=== PATIENT | female | born 1950 | race African-American/Black ===

== ENCOUNTER 2021-02-17 14:01 | Inpatient (IN) | payer OTHER, MEDICARE ==
[~2021-02-17] VITALS: Ht 172.7 cm; Wt 62.1 kg
--- NOTE | 2021-02-17 14:20 | NUR ---
OSWALDO FROM [facility] C/O INCREASED CONFUSION AND POOR ORAL INTAKE. PATIENT A/OX4, BREATHING EVEN AND UNLABORED, NO SOB NOTED. AMBULATORY WITHS TEADY GAIT.
[2021-02-17 14:46] LABS: BILIRUBIN,URINE Negative (NEGATIVE); COLOR,URINE YELLOW (YELLOW); LEUKOCYTE ESTERASE ,URINE Negative (NEGATIVE); NITRITE, URINE Negative (NEGATIVE); PH,URINE 6.5 (5.0-8.0); PROTEIN,URINE Negative (NEGATIVE); UGLUCOSE Negative (NEGATIVE); UROBILINOGEN,URINE 0.2 EU/dL (0.2)
--- NOTE | 2021-02-17 14:51 | NUR ---
COVID SWAB SENT. PATIENT IS REQUESTING FOR FOOD.
--- NOTE | 2021-02-17 14:51 | NUR ---
IV LINE ESTABLISHED, BLOOD DRAWN AND SENT TO LAB.
[2021-02-17 14:53] LABS: BASOPHILS # (AUTO) 0.1 /CMM (0.0-0.2); BASOPHILS % (AUTO) 0.8 % (0.0-2.0); EOSINOPHILS % (AUTO) 2.4 % (0.0-6.0); HEMATOCRIT 38 % (33-45); HEMOGLOBIN 12.5 g/dL (11.5-14.8); LYMPHOCYTES # (AUTO) 3.5 /CMM (0.8-4.8); LYMPHOCYTES % (AUTO) 55.8 % (20.0-44.0); MEAN CORPUSCULAR HGB CONC 33 g/dl (31.0-36.0); MEAN CORPUSCULAR VOLUME 96 fL (82-100); MONOCYTES # (AUTO) 0.4 /CMM (0.1-1.30); NEUTROPHILS # (AUTO) 2.1 /CMM (1.8-8.9); PLATELET COUNT (AUTO) 323 /CMM (150-450); RED BLOOD CELL COUNT(AUTO) 3.93 MIL/uL (4.0-5.2); WHITE BLOOD COUNT (AUTO) 6.2 K/uL (4.3-11.0)
[2021-02-17 15:01] LABS: CALCIUM, SERUM 9.7 mg/dL (8.5-10.1); CARBON DIOXIDE 30 mmol/L (21-32); CHLORIDE 103 mmol/L (98-107); CREATININE 0.7 mg/dL (0.6-1.3); GLUCOSE 104 mg/dL (74-106); POTASSIUM 4.3 mmol/L (3.5-5.1); SODIUM SERUM 139 mmol/L (136-145); UREA NITROGEN, BLOOD 12 mg/dL (7-18)
[2021-02-17 15:06] LABS: ALANINE AMINOTRANSFERASE 13 U/L (12-78); ALBUMIN 3.3 g/dL (3.4-5.0); ALKALINE PHOSPHATASE 69 U/L (46-116); ASPARTATE AMINOTRANSFERASE 14 U/L (15-37); BILIRUBIN,DIRECT 0.1 mg/dL (0.0-0.2); BILIRUBIN,TOTAL 0.5 mg/dL (0.2-1.0); TOTAL PROTEIN, SERUM 7.2 g/dL (6.4-8.2)
[2021-02-17] MEDS ORDERED: LEVO25TA7 PO (15:33)
[2021-02-17] MEDS ORDERED: QUET100T PO (15:33)
[2021-02-17] MEDS ORDERED: DOCU-141 PO (15:33)
[2021-02-17] MEDS ORDERED: IBUP-1953 PO (15:33)
[2021-02-17] MEDS ORDERED: NA P133E RC (15:33)
[2021-02-17] MEDS ORDERED: LEVE500T9 PO (15:33)
[2021-02-17] MEDS ORDERED: BISA10SU11 RC (15:33)
[2021-02-17] MEDS ORDERED: INSU100V3 IJ (15:33)
[2021-02-17] MEDS ORDERED: ACET325T53 PO (15:33)
[2021-02-17] MEDS ORDERED: RISP2TAB5 PO (15:33)
[2021-02-17] MEDS ORDERED: ASCO500C17 PO (15:33)
[2021-02-17] MEDS ORDERED: MULT-447 PO (15:33)
[2021-02-17] MEDS ORDERED: MAGN400O6 PO (15:33)
[2021-02-17] MEDS ORDERED: METF500T PO (15:33)
[2021-02-17] MEDS ORDERED: LITH150C PO (15:33)
[2021-02-17] MEDS ORDERED: IV NS 0.9% 1,000 ML BAG IV ONE (16:00)
[2021-02-17] MEDS ORDERED: Z GUARD REMEDY 2 OZ OINT TP PRN (17:00)
[2021-02-17] MEDS ORDERED: DEXTROSE 50%-WATER 50 ML DISP.SYRIN IV PRN (17:00)
[2021-02-17] MEDS ORDERED: ONDANSETRON HCL/PF 4 MG/2 ML VIAL IVP PRN (17:00)
[2021-02-17] MEDS ORDERED: MAG HYDROX/AL HYDROX/SIMETH 30 ML UDC PO PRN (17:00)
[2021-02-17] MEDS ORDERED: ACETAMINOPHEN 325 MG TABLET PO PRN (17:00)
[2021-02-17] MEDS ORDERED: MAGNESIUM HYDROXIDE 30 ML UDC PO PRN ×2 (17:00)
[2021-02-17] MEDS ORDERED: IBUPROFEN 400 MG TABLET PO PRN (17:00)
[2021-02-17] MEDS ORDERED: HYDROCODONE/APAP 5/325MG TABLET PO PRN (17:00)
[2021-02-17] MEDS ORDERED: NA PHOS,M-B/NA PHOS,DI-BA 1 EA ENEMA RC PRN (17:00)
[2021-02-17] MEDS ORDERED: BISACODYL SUPP (10 MG) 10 MG/SUPP.RECT SUPP.RECT RC PRN (17:00)
--- NOTE | 2021-02-17 17:16 | NUR ---
COVID SWAB SENT
--- NOTE | 2021-02-17 18:23 | NUR ---
PROVIDED DINNER TRAY.
--- NOTE | 2021-02-17 18:50 | NUR ---
room 105, give report after shift per house sup
--- NOTE | 2021-02-17 20:06 | NUR ---
REPORT GIVEN GEOVANY MATOS FOR REY.
--- NOTE | 2021-02-17 20:15 | NUR ---
RN NOTE PT ARRIVED TO THE UNIT VIA GURNEY , PT IS CONFUSED, ON RA SATING 98%, NO S/S F DISTRESS.SAFETY MEASURES IN PLACE.
[2021-02-17 20:30] VITALS: BP 112/68
[2021-02-17] MEDS ORDERED: LEVETIRACETAM (250 MG) 250 MG TABLET PO SCH (21:00)
[2021-02-17] MEDS: LITHIUM CARBONATE 150 MG CAPSULE PO SCH (22:25)
[2021-02-17] MEDS: QUETIAPINE FUMARATE 100 MG TABLET PO SCH (22:25)
[2021-02-17] MEDS: BLOOD SUGAR DIAGNOSTIC 1 EACH STRIP VI SCH ×2 (22:28→22:33)
[2021-02-17] MEDS: METFORMIN 500 MG TABLET PO SCH (22:28)
[2021-02-17] MEDS: *INSULIN REGULAR(HUMULIN R)HUM 100 UNIT/ML VIAL SQ PRN (22:31)
[2021-02-17] MEDS: IV NS 0.9% 1,000 ML IV PRN (22:34)
[2021-02-18 04:00] VITALS: BP 110/62
[2021-02-18] MEDS: INSULIN REGULAR, HUMAN 100 UNIT/ML 3 ML VIAL SQ PRN ×2 (07:57→17:44)
[2021-02-18] MEDS: BLOOD SUGAR DIAGNOSTIC 1 EACH STRIP VI SCH ×4 (07:58→22:00)
[2021-02-18 08:00] VITALS: BP 106/74
[2021-02-18] MEDS: DOCUSATE SODIUM 100 MG CAPSULE PO SCH (09:50)
[2021-02-18] MEDS: LEVETIRACETAM (250 MG) 250 MG TABLET PO SCH ×3 (09:51→21:13)
[2021-02-18] MEDS: LITHIUM CARBONATE 150 MG CAPSULE PO SCH ×3 (09:51→21:13)
[2021-02-18] MEDS: MULTIVIT W/MINERALS 1 TAB TABLET PO SCH (09:51)
[2021-02-18] MEDS: QUETIAPINE FUMARATE 100 MG TABLET PO SCH ×2 (09:51→17:31)
[2021-02-18] MEDS: LEVOTHYROXINE SODIUM 25 MCG TABLET PO SCH (09:52)
[2021-02-18] MEDS: METFORMIN 500 MG TABLET PO SCH ×2 (12:34→17:31)
[2021-02-18] MEDS: IV NS 0.9% 1,000 ML IV PRN (13:05)
[2021-02-18 16:00] VITALS: BP_SYST 102; BP_SYST 108; BP_DIAS 65; BP_DIAS 68
[2021-02-18] MEDS: GLUCERNA SHAKE 237 ML CAN PO SCH (17:32)
--- NOTE | 2021-02-18 18:55 | NUR ---
RN NOTE REPORT GIVEN TO ONCOMING SHIFT FOR REY.
--- NOTE | 2021-02-18 19:10 | NUR ---
RN OPENING NOTE RECEIVED PATIENT IN BED RESTING ALERT CONFUSED VERBALLY RESPONSIVE ON ROOM AIR NO SOB NOT ACUTE DISTRESS NOTED,IV SITE IS ON RIGHT AC INTACT PATENT,ON IV HYDRATION BUT PATIENT REFUSES TO HAVE IV HYDRATION AMBULATORY WITH ASSIST CONTINENT TO BOWEL/BLADDER,BED IN LOW POSITON AND LOCKED,BED ALARM IS ON CONTINUE TO MONITOR.
[2021-02-18] MEDS: risperiDONE 1 MG TABLET PO SCH ×2 (21:15→21:21)
--- NOTE | 2021-02-18 21:39 | NUR ---
RN NOTE PATIENT REFUSED MEDICATION AND IV HYDRATION AFTER EXPLAINED 3 TIMES RISKS AND BENEFITS STILL REFUSED CANT RETURN MEDS BECAUSE ALREADY OPEN TO USE. NOTIFIED TRIMMING ASSEMBLER JAROD MCCONNELL CONTINUE TO MONITOR.
[2021-02-19 04:00] VITALS: BP 102/68
--- NOTE | 2021-02-19 06:35 | NUR ---
RN CLOSING NOTE PATIENT REMAINS ON ALERT CONFUSED ON ROOM AIR NO SOB NOT ACUTE DISTRESS NOTED PATIENT REFUSED TO BE CHANGED AND REFUSED MEDS AND REFUSED TO TAKE VITAL SIGNS NOTIFIED JAROD MCCONNELL ENDORSE NEXT COMING SHIFT FOR CONTINUATION OF CARE.
[2021-02-19] MEDS: BLOOD SUGAR DIAGNOSTIC 1 EACH STRIP VI SCH ×4 (07:30→22:00)
--- NOTE | 2021-02-19 07:45 | NUR ---
RN OPENING NOTE PATIENT IS CURRENTLY IN BED WITH HOB AT SEMI FOWLERS POSITION. PATIENT IS ON ROOM AIR WITH NO SIGNS OF LABORED BREATHING. PATIENT IS CONFUSED. RAC #18 IS PATENT AND INTACT. BED IS LOCKED IN THE LOWEST POSITION, 3 GUARD RAILS RAISED, CALL HERNANDEZ WITHIN REACH, AND ALL HOSPITAL SAFETY PRECAUTIONS ARE IN PLACE. WILL CONTINUE TO MONITOR THROUGHOUT SHIFT.
[2021-02-19] MEDS: GLUCERNA SHAKE 237 ML CAN PO SCH ×3 (08:00→17:26)
[2021-02-19] MEDS: LEVETIRACETAM (250 MG) 250 MG TABLET PO SCH ×3 (08:13→20:21)
[2021-02-19] MEDS: LITHIUM CARBONATE 150 MG CAPSULE PO SCH ×3 (08:13→20:21)
[2021-02-19] MEDS: risperiDONE 1 MG TABLET PO SCH ×2 (08:13→17:15)
[2021-02-19] MEDS: DOCUSATE SODIUM 100 MG CAPSULE PO SCH (08:13)
[2021-02-19] MEDS: MULTIVIT W/MINERALS 1 TAB TABLET PO SCH (08:14)
[2021-02-19] MEDS: QUETIAPINE FUMARATE 100 MG TABLET PO SCH ×2 (08:14→17:15)
[2021-02-19] MEDS: LEVOTHYROXINE SODIUM 25 MCG TABLET PO SCH (08:14)
--- NOTE | 2021-02-19 08:14 | NUR ---
RN NOTE PATIENT REFUSED ALL AM MEDS AND ACCU CHECK. DR. LEMOS AWARE. WILL CONTINUE TO MONITOR.
[2021-02-19] MEDS: *INSULIN REGULAR(HUMULIN R)HUM 100 UNIT/ML VIAL SQ PRN ×2 (12:33→17:15)
[2021-02-19] MEDS: METFORMIN 500 MG TABLET PO SCH ×2 (12:41→17:17)
[2021-02-19 16:00] VITALS: BP 102/68
--- NOTE | 2021-02-19 19:00 | NUR ---
RN OPENING NOTE RECEIVED PATIENT IN BED RESTING CONFUSED ON ROOM AIR COMFORTABLE,AMBULATORY CONTINENT TO BOWEL/BLADDER IV SITE RIGHT AC INTACT PATENT REFUSED TO HAVE IV HYDRATION,SAFETY MEASURE IMPLEMENT CALL LIGHT WITHIN REACH,BED IN LOW POSITION AND LOCKED,BED ALARM IS ON CONTINUE TO MONITOR.
--- NOTE | 2021-02-19 19:04 | NUR ---
rn closing note patient remained stable for remainder of shift. all due meds given. will endorse to mini shifter rn for chata.
--- NOTE | 2021-02-19 20:39 | NUR ---
RN OPENING NOTE PT REFUSED ALL 2100 MEDS EXPLAINED RISKS AND BENEFITS STILL REFUSED, AWARE CONTINUE TO MONITOR.
--- NOTE | 2021-02-19 22:30 | NUR ---
RN NOTE PATIENT REFUSES TO HAVE ACCUE CHEK CONTINUE TO MONITOR
--- NOTE | 2021-02-20 06:35 | NUR ---
RN CLOSING NOTE PATIENT REMAINS ON ALERT CONFUSED ON ROOM AIR AMBULATORY CONTINENT TO BOWEL/BLADDER,NO SOB NOT ACUTE DISTRESS NOTED,SHE REFUSES MEDS/LABS/IV HYDRATION AND ACCU-CHEK MD AWARE.ENDORSE NEXT COMING SHIFT FOR CONTINUATION OF CARE.
[2021-02-20] MEDS: BLOOD SUGAR DIAGNOSTIC 1 EACH STRIP VI SCH ×2 (07:30→12:00)
--- NOTE | 2021-02-20 07:30 | NUR ---
ms rn received on bed, sleeping, easily awake,not in any form of distress, respirations even and unlabored,no sob noted,patient refusing blood sugar check,will monitor patient's condition at this time.
[2021-02-20] MEDS: GLUCERNA SHAKE 237 ML CAN PO SCH ×2 (08:00→12:21)
--- NOTE | 2021-02-20 09:00 | NUR ---
ms rn refused meds, will take later when she eats.
--- NOTE | 2021-02-20 11:30 | NUR ---
ms rn was able to take meds now, just ate breakfast.
[2021-02-20] MEDS: MULTIVIT W/MINERALS 1 TAB TABLET PO SCH (11:32)
[2021-02-20] MEDS: LEVOTHYROXINE SODIUM 25 MCG TABLET PO SCH (11:32)
[2021-02-20] MEDS: LEVETIRACETAM (250 MG) 250 MG TABLET PO SCH (11:33)
[2021-02-20] MEDS: LITHIUM CARBONATE 150 MG CAPSULE PO SCH (11:34)
[2021-02-20] MEDS: risperiDONE 1 MG TABLET PO SCH (11:34)
[2021-02-20] MEDS: QUETIAPINE FUMARATE 100 MG TABLET PO SCH (11:34)
[2021-02-20] MEDS: DOCUSATE SODIUM 100 MG CAPSULE PO SCH (11:34)
[2021-02-20] MEDS: METFORMIN 500 MG TABLET PO SCH (11:34)
--- NOTE | 2021-02-20 15:00 | NUR ---
ms rn ready to be discharge, all needs attended, waiting for transportation.
[2021-02-20 15:51] VITALS: BP 106/68
[2021-02-20 16:00] VITALS: BP 106/68
--- NOTE | 2021-02-20 16:00 | NUR ---
ms rn tried to reach person to notify, marianela griffin, does not answer, left message.
--- NOTE | 2021-02-20 16:22 | NUR ---
ms rn patient transfered to [facility] via ambulance,all needs attended.
== END 2021-02-20 16:21 | DRG 421 ==
LOC: ER 14:07 → MEDSG1 19:41
PROVIDERS: ADMIT Internal Medicine; ATTEND Internal Medicine
DX: R62.7 Adult failure to thrive (principal); E43 Unspecified severe protein-calorie malnutrition; G93.40 Encephalopathy, unspecified; E11.9 Type 2 diabetes mellitus without complications; E88.09 Other disorders of plasma-protein metabolism, not elsewhere classified; G40.909 Epilepsy, unspecified, not intractable, without status epilepticus; Z68.20 Body mass index [BMI] 20.0-20.9, adult; F03.90 Unspecified dementia, unspecified severity, without behavioral disturbance, psychotic disturbance, mood disturbance, and anxiety; F31.9 Bipolar disorder, unspecified; I10 Essential (primary) hypertension; J44.9 Chronic obstructive pulmonary disease, unspecified; Z79.4 Long term (current) use of insulin; M62.50 Muscle wasting and atrophy, not elsewhere classified, unspecified site
CPT/HCPCS: 36415; 71045-TC; 80048-TC; 80076-TC; 82962-TC; 84484-TC; 85025-TC; 87081-TC; C9803; G0378; J1815; J7030; U0003

== ENCOUNTER 2022-06-18 14:33 | Inpatient (IN) | payer MEDICARE, OTHER ==
[~2022-06-18] VITALS: Ht 172.7 cm; Wt 52.6 kg
[~2022-06-18 14:33] MED LIST: ACET325T53 PO; ASCO500C17 PO; BISA10SU11 RC; DOCU-141 PO; IBUP-1953 PO; INSU100V3 IJ; LEVE500T9 PO; LEVO25TA7 PO; LITH150C PO; MAGN400O6 PO; METF500T PO; MULT-447 PO; NA P133E RC; QUET100T PO; RISP2TAB5 PO
--- NOTE | 2022-06-18 14:41 | NUR ---
bib PA frm snf for poor po intake, weight loss. possible g tube placement. placed on bed, awake-alert, breathing even and unlabored, agitated- screaming.
[2022-06-18] MEDS ORDERED: IV NS 0.9% 1,000 ML BAG IV ONE (15:00)
[2022-06-18 15:24] LABS: BASOPHILS % (AUTO) 0.6 % (0.0-2.0); EOSINOPHILS % (AUTO) 2.3 % (0.0-6.0); HEMATOCRIT 35 % (33-45); HEMOGLOBIN 11.3 g/dL (11.5-14.8); LYMPHOCYTES # (AUTO) 4.6 K/uL (0.8-4.8); LYMPHOCYTES % (AUTO) 57.6 % (20.0-44.0); MEAN CORPUSCULAR HGB CONC 33 g/dl (31.0-36.0); MEAN CORPUSCULAR VOLUME 92 fL (82-100); MONOCYTES # (AUTO) 0.7 K/uL (0.1-1.30); MONOCYTES % (AUTO) 8.7 % (2.0-12.0); NEUTROPHILS # (AUTO) 2.5 K/uL (1.8-8.9); NEUTROPHILS % (AUTO) 30.8 % (43.0-81.0); PLATELET COUNT (AUTO) 352 K/uL (150-450); RED BLOOD CELL COUNT(AUTO) 3.79 MIL/uL (4.0-5.2)
[2022-06-18] MEDS ORDERED: MIRT-90 PO (15:24)
[2022-06-18] MEDS ORDERED: RISP0.2515 PO (15:24)
--- NOTE | 2022-06-18 15:39 | NUR ---
covid swab collected and sent to lab.
[2022-06-18 15:44] LABS: ALANINE AMINOTRANSFERASE 12 U/L (12-78); ALBUMIN 2.7 g/dL (3.4-5.0); ALKALINE PHOSPHATASE 50 U/L (46-116); ASPARTATE AMINOTRANSFERASE 14 U/L (15-37); BILIRUBIN,DIRECT 0.1 mg/dL (0.0-0.2); BILIRUBIN,TOTAL 0.4 mg/dL (0.2-1.0); CALCIUM, SERUM 9.5 mg/dL (8.5-10.1); CARBON DIOXIDE 29 mmol/L (21-32); CHLORIDE 105 mmol/L (98-107); CREATININE 0.8 mg/dL (0.6-1.3); GLUCOSE 106 mg/dL (74-106); SODIUM SERUM 140 mmol/L (136-145); TOTAL PROTEIN, SERUM 6.7 g/dL (6.4-8.2); UREA NITROGEN, BLOOD 14 mg/dL (7-18)
--- NOTE | 2022-06-18 16:57 | NUR ---
CALLED [facility], PAGED AGUSTÍN SHARMA FOR ADMISSION
--- NOTE | 2022-06-18 20:57 | NUR ---
REPORT GIVEN TO MILLY
--- NOTE | 2022-06-18 21:43 | NUR ---
TRANSFERRED TO 307 IN STABLE CONDITION
--- NOTE | 2022-06-18 21:45 | NUR ---
RN NOTE RECEIVED PT VIA GURNEY FROM ER. ENDORSED BY BENY. PT IN BED AWAKE AND SCREAMING. PT IS CONFUSED. UPON ARRIVAL PT HAD MADE A BOWEL MOVEMENT. PT HAS HAND MITTENS ON. IV IN R HAND 20G INTACT AND PATENT. PT TRANSFERRED TO MED SURG BED. SAFETY CHECKS IN PLACE: BED LOCKED, BED IN LOWEST POSITION, CALL LIGHT WITHIN REACH, SIDE RAILS X3. WILL CONT PLAN OF CARE.
--- NOTE | 2022-06-18 22:00 | NUR ---
RN NOTE PT IN BED AWAKE, CONFUSED. UNABLE TO COMPREHEND WORDS MOST TIMES. PT HAS CALMED DOWN NOW. PT HAD A BED BATH AND IS NOW RESTING COMFORTABLY IN BED. PT HAD ASKED FOR PUDDING, CURRENTLY EATING IT AT BEDSIDE. HAND MITTENS TAKEN OFF. NO C/O OF PAIN AT THIS TIME. TV TURNED ON PER PT REQUEST. WILL CONT PLAN OF CARE.
[2022-06-18] MEDS: MIRTAZAPINE 15 MG TABLET PO SCH (22:23)
[2022-06-18] MEDS: LEVETIRACETAM SOL (5 ML) 100 MG/ML UDC PO SCH (22:23)
[2022-06-18] MEDS: LITHIUM CARBONATE 150 MG CAPSULE PO SCH (22:23)
[2022-06-18 23:10] VITALS: BP 120/73
[2022-06-18] MEDS: ENOXAPARIN SODIUM 40 MG/0.4 ML DISP.SYRIN SQ SCH (23:30)
[2022-06-18] MEDS ORDERED: ACETAMINOPHEN 325 MG TABLET PO PRN (23:30)
[2022-06-18] MEDS ORDERED: ONDANSETRON HCL/PF 4 MG/2 ML VIAL IVP PRN (23:30)
[2022-06-18] MEDS ORDERED: Z GUARD REMEDY 4 OZ OINT TP PRN (23:30)
--- NOTE | 2022-06-18 23:30 | NUR ---
RN NOTE PT REFUSED LOVENOX INJECTION AND THE APPLICATION OF DVT PUMPS. EXPLAINED THE RISKS AND THE BENEFITS OF RECEIVING BOTH THE INJECTION AND HAVING THE DVT PUMPS ON HER LEGS TO PREVENT BLOOD CLOTS, PT STILL REFUSED.
[2022-06-18] MEDS: IV LR 1000 ML 1,000 ML IV PRN (23:47)
--- NOTE | 2022-06-19 06:22 | NUR ---
NOC RN NOTE PATIENT REFUSED BLOOD DRAW, SCREAMING AT TOOTH CUTTER AND GETTING AGITATED.
--- NOTE | 2022-06-19 06:32 | NUR ---
RN CLOSING NOTE PT IN BED RESTING COMFORTABLY. A/OX1-2, PT CONFUSED AT TIMES, OTHER TIMES CAN FOLLOW SIMPLE COMMANDS AND ANSWER QUESTIONS. MUMBLES WORDS THAT CAN NOT BE UNDERSTOOD. NO SIGNS OF RESPIRATORY DISTRESS OR SOB NOTED. STABLE ON RA. R HAND IV 20G INFUSING LR @ 80ML/HR. PT SLEPT THROUGH MOST OF THE NIGHT, WITH OCCASIONAL TIMES WHEN AGITATED AND YELLING. NO C/O OF PAIN AT THIS TIME. ALL NEEDS ATTENDED TO. ALL SCHEDULED MEDS GIVEN. SAFETY CHECKS IN PLACE: BED LOCKED, BED IN LOWEST POSITION, CALL LIGHT WITHIN REACH, SIDE RAILS X3. WILL ENDORSE TO DAY SHIFT NURSE FOR REY.
--- NOTE | 2022-06-19 07:28 | NUR ---
MS RN OPENING NOTE RECEIVED PT IN BED ASLEEP, EASILY AROUSED. A/O X1-2, CONFUSED. REORIENTED PT NEEDED. ON RA, TOLERATING WELL. NO SOB NOTED. NOT IN ANY SIGN OF RESPIRATORY DISTRESS. IV ACCESS R HAND G#20 INTACT AND PATENT, WITH LR INFUSING AT 80ML/HR. SAFETY MEASURES IN PLACE: BED IN LOWEST AND LOCKED POSITION, SIDE RAILS UPX2, AND CALL LIGHT WITHIN REACH. WILL CONTINUE TO MONITOR PT.
[2022-06-19] MEDS: LEVOTHYROXINE SODIUM 75 MCG TABLET PO SCH ×2 (07:30→07:55)
[2022-06-19 08:00] VITALS: BP 122/78
--- NOTE | 2022-06-19 08:00 | NUR ---
RN NOTE PT REFUSED HER SYNTHROID SCHEDULED AT 0730. EXPLAINED RISK AND BENEFITS X3 STILL STRONGLY REFUSED.
[2022-06-19] MEDS: QUETIAPINE FUMARATE 100 MG TABLET PO SCH ×2 (09:00→17:00)
[2022-06-19] MEDS: risperiDONE 1 MG TABLET PO SCH ×2 (09:00→17:00)
[2022-06-19] MEDS: LEVETIRACETAM SOL (5 ML) 100 MG/ML UDC PO SCH ×2 (09:00→21:00)
[2022-06-19] MEDS: METFORMIN 500 MG TABLET PO SCH ×2 (09:00→17:00)
[2022-06-19] MEDS: LITHIUM CARBONATE 150 MG CAPSULE PO SCH ×2 (09:00→21:00)
[2022-06-19] MEDS: DOCUSATE SODIUM 100 MG CAPSULE PO SCH (09:00)
--- NOTE | 2022-06-19 09:21 | NUR ---
RN NOTE PT REFUSED ALL HER MEDICATIONS SCHEDULED AT 0900. EXPLAINED RISK AND BENEFITS X3, STILL STRONGLY REFUSED. PT STARTED SCREAMING AND STATED, "I DON'T NEED ANY MEDICATIONS, I'M GOING TO LIVE FOREVER".
--- NOTE | 2022-06-19 12:40 | NUR ---
RN NOTE' PT NOTED WITH UNTOWARD BEHAVIOR TOWARDS STAFF. PT SCRATCHED 2 OF THE WOOL SACKER'S MULTIPLE TIMES WHILE DOING THEIR AM CARE. PT ALSO PULLED OUT HER IV ACCESS IN HER RIGHT HAND WITH NO ACTIVE BLEEDING NOTED. DRY PRESSURE DRESSING APPLIED TO SITE. PT STILL CONTINUE TO SCREAM USING PROFANITY AND BEING AGGRESSIVE TOWARDS STAFF. MADE DR. AGUSTÍN SHARMA AWARE OF PT'S BEHAVIOR WITH ORDERS TO GIVE ZYPREXA 10MG IM X 1 ONE TIME DOSE.
[2022-06-19] MEDS ORDERED: OLANZAPINE 10 MG VIAL IM ONE (13:00)
--- NOTE | 2022-06-19 13:00 | NUR ---
RN NOTE: ZYPREXA 10MG IM ADMINISTERED ORDERED ONE TIME DOSE FOR AGITATION AND COMBATIVENESS. WILL MONITOR AND REASSESS PT.
--- NOTE | 2022-06-19 13:44 | NUR ---
RN NOTE RECEIVED AN ORDER FROM DR. AGUSTÍN SHARMA TO APPLY BILATERAL SOFT WRIST RESTRAINTS. PT STILL NOTED WITH EPISODES OF PULLING OUT IV LINES, TUBES, AND PT STILL BEING AGGRESSIVE AND COMBATIVE.
--- NOTE | 2022-06-19 15:00 | NUR ---
RN NOTE ATTEMPTED TO REACH OUT TO TAMARA JEAN AT PHONE NUMBER TO OBTAIN CONSENT FOR A EGD WITH GTUBE PLACEMENT AND WAS NO LONGER IN SERVICE. CALLED THE [facility] WHICH IS WHERE PT IS FROM AND SPOKE WITH AVELINA, PER MIRANDA QUAN DAVID IS NO LONGER THE PT'S CONSERVATOR. PT'S NEW CONSERVATOR IS RATNA MARTINS .
--- NOTE | 2022-06-19 15:02 | NUR ---
RN NOTE CALLED PT'S CONSERVATOR, RATNA MARTINS TO OBTAIN CONSENT FOR AN EGD WITH PEG PLACEMENT FOR PT. PER RATNA, BEFORE SHE CAN AGREE AND GIVE CONSENT, SHE NEEDS THE PRIMARY DOCTOR AND THE PSYCHIATRIST NOTES ON WHY THE EGD WITH PEG PLACEMENT IS NEEDED UNLESS IT'S A MEDICAL EMERGENCY THEN FOLLOW THE HOSPITAL PROTOCOL.
--- NOTE | 2022-06-19 15:10 | NUR ---
RN NOTE CALLED DR. AGUSTÍN SHARMA AND MADE HIM AWARE OF THE STATEMENT FROM THE PT'S CONSERVATOR, RATNA IN REGARDS TO THE EGD WITH PEG PLACEMENT CONSENT. PER DR. AGUSTÍN SHARMA, THE EGD WITH PEG PLACE IS AN URGENT MEDICAL NEED TO SUSTAIN LIFE THE PT IS UNABLE TO CONSUME ENOUGH FOOD AND WATER.
[2022-06-19] MEDS: IV LR 1000 ML 1,000 ML IV PRN (15:20)
[2022-06-19 16:17] VITALS: BP 107/59
--- NOTE | 2022-06-19 17:31 | NUR ---
RN NOTE PT REFUSED ALL HER MEDICATIONS SCHEDULED AT 1700. EXPLAINED RISK AND BENEFITS X3, STILL STRONGLY REFUSED.
[2022-06-19] MEDS ORDERED: ANESTHESIA TRAY IN PYXIS 1 EA TRAY MC ONE (18:46)
--- NOTE | 2022-06-19 19:20 | NUR ---
MS RN CLOSING NOTE PT IN BED ASLEEP, EASILY AROUSED. A/O X1-2, CONFUSED. REORIENTED PT NEEDED. ON RA, TOLERATING WELL. NO SOB NOTED. NOT IN ANY SIGN OF RESPIRATORY DISTRESS. IV ACCESS RFA G#22 INTACT AND PATENT, WITH LR INFUSING AT 80ML/HR. ALL NEEDS ATTENDED. KEPT CLEAN AND COMFORTABLE. TURNED AND REPOSITIONED Q2HRS AND NEEDED. SAFETY MEASURES IN PLACE: BED IN LOWEST AND LOCKED POSITION, SIDE RAILS UPX2, AND CALL LIGHT WITHIN REACH. ENDORSED TO DEPARTMENT CLINICIAN NURSE FOR REY.
--- NOTE | 2022-06-19 19:20 | NUR ---
PT TAKEN DOWN TO OR FOR GT PLACEMENT. PER CARLO LINARES, CONSENT TO BE SIGNED BY 2 MD CONSERVATOR STATES TO FOLLOW PROTOCOL FOR EMERGENCY PROCEDURES. PATIENT NOT IN ANY APPARENT DISTRESS. Addendum: 06/19/22 at 2257 by CARA BERTRAND RN PATIENT ON RA, TOLERATING WELL, NO SOB NOTED UPON ASSESSMENT. PATIENT IS CONFUSED A/O X 1-2. PATIENT HAS A RFA 22G WITH LR AT 80 ML/HR ONGOING.
--- NOTE | 2022-06-19 19:30 | NUR ---
PATIENT WAS BROUGHT BACK FROM OR, SAFETY SPEC STATES THAT THE DOCTORS AREN'T THERE TO SIGN FOR CONSENT. CHARGE NURSES PAULINA SCHULTZ PER MILAGROS MATOS.
[2022-06-19 20:00] VITALS: BP 122/74
[2022-06-19] MEDS: ENOXAPARIN SODIUM 40 MG/0.4 ML DISP.SYRIN SQ SCH (21:35)
[2022-06-19] MEDS: MIRTAZAPINE 15 MG TABLET PO SCH (21:35)
--- NOTE | 2022-06-19 21:35 | NUR ---
PATIENT REFUSED ALL OF HER MEDICATION DESPITE EXPLAINING THE MEDICATIONS' PURPOSE AND USES WELL RISK AND BENEFITS. SHE SAYS "I DON'T TAKE NO MEDICATIONS, I DON'T HAVE SEIZURES OR NOTHING, I DON'T NEED ANY MEDICATIONS".
[2022-06-20] MEDS: IV LR 1000 ML 1,000 ML IV PRN ×2 (04:55→16:39)
--- NOTE | 2022-06-20 06:48 | NUR ---
RN CLOSING NOTE PATIENT IN BED, EYES CLOSED, EASILY AWAKENED. PATIENT IS ARGUMENTATIVE AT TIMES, A/O X 1-2. PATIENT IS CURRENTLY NPO FOR POSS GT PLACEMENT TODAY PENDING CONSENTS FROM MD. NO PAIN VERBALIZED AT THIS TIME. RFA 22G IV ACCESS PATENT AND INTACT, INFUSING LR AT 80 ML/HR. SAFETY MEASURES IN PLACE: BED LOCKED AND IN LOWEST POSITION, CALL LIGHT WITHIN REACH, SIDE RAILS UP. BED ALARM ON. ALL NEEDS MET AND ATTENDED. ALL ORDERS CARRIED OUT. WILL ENDORSE TO DAY SHIFT NURSE FOR REY.
--- NOTE | 2022-06-20 07:29 | NUR ---
MS RN OPENING NOTE RECEIVED PT IN BED ASLEEP, EASILY AROUSED. A/O X1-2, CONFUSED. REORIENTED PT NEEDED. ON RA, TOLERATING WELL. NO SOB NOTED. NOT IN ANY SIGN OF RESPIRATORY DISTRESS. IV ACCESS RFA G#22 INTACT AND PATENT, WITH LR INFUSING AT 80ML/HR. SAFETY MEASURES IN PLACE: BED IN LOWEST AND LOCKED POSITION, SIDE RAILS UPX2, AND CALL LIGHT WITHIN REACH. WILL CONTINUE TO MONITOR PT.
[2022-06-20] MEDS: LEVOTHYROXINE SODIUM 75 MCG TABLET PO SCH (07:30)
[2022-06-20] MEDS: METFORMIN 500 MG TABLET PO SCH ×2 (09:00→17:00)
[2022-06-20] MEDS: LITHIUM CARBONATE 150 MG CAPSULE PO SCH ×2 (09:00→21:00)
[2022-06-20] MEDS: DOCUSATE SODIUM 100 MG CAPSULE PO SCH (09:00)
[2022-06-20] MEDS: QUETIAPINE FUMARATE 100 MG TABLET PO SCH ×2 (09:00→17:00)
[2022-06-20] MEDS: LEVETIRACETAM SOL (5 ML) 100 MG/ML UDC PO SCH ×2 (09:00→21:00)
[2022-06-20] MEDS: risperiDONE 1 MG TABLET PO SCH ×2 (09:00→17:00)
--- NOTE | 2022-06-20 11:16 | NUR ---
RN NOTE CALLED THE PT'S CONSERVATOR, RATNA MARTINS AGAIN IN REGARDS TO THE CONSENT FOR AN EGD WITH PEG PLACEMENT. MADE HER AWARE THAT PER DR. AGUSTÍN SHARMA, THE EGD WITH PEG PLACEMENT IS AN URGENT MEDICAL NEED TO SUSTAIN LIFE THE PT IS UNABLE TO CONSUME ENOUGH FOOD AND WATER. PER RATNA, SHE'S NOT ABLE TO GIVE CONSENT, BUT SINCE IT'S AN URGENT MEDICAL NEED TO JUST FOLLOW THE HOSPITAL PROTOCOL. DR. AGUSTÍN SHARMA AWARE.
--- NOTE | 2022-06-20 13:40 | NUR ---
RN NOTE REASSESSED PT OF THE NEED OF BILATERAL SOFT WRIST RESTRAINTS. PT STILL NOTED WITH EPISODES OF PULLING OUT IV LINES AND PT STILL BEING AGGRESSIVE AND COMBATIVE TOWARDS STAFF BY YELLING, SCRATCHING AND HITTING STAFF. MADE DR. SHARMA AWARE WITH ORDERS TO RENEW AND CONTINUE THE BILATERAL SOFT WRIST RESTRAINTS. NO SKIN ISSUES AND NO CIRCULATIONS PROBLEM NOTED UPON ASSESSMENT OF BOTH WRIST.
[2022-06-20 14:25] LABS: BASOPHILS % (AUTO) 0.5 % (0.0-2.0); EOSINOPHILS % (AUTO) 2.4 % (0.0-6.0); HEMATOCRIT 33 % (33-45); HEMOGLOBIN 10.7 g/dL (11.5-14.8); LYMPHOCYTES # (AUTO) 4.8 K/uL (0.8-4.8); LYMPHOCYTES % (AUTO) 59.7 % (20.0-44.0); MEAN CORPUSCULAR HGB CONC 32 g/dl (31.0-36.0); MEAN CORPUSCULAR VOLUME 94 fL (82-100); MONOCYTES # (AUTO) 0.9 K/uL (0.1-1.30); MONOCYTES % (AUTO) 10.8 % (2.0-12.0); NEUTROPHILS # (AUTO) 2.2 K/uL (1.8-8.9); NEUTROPHILS % (AUTO) 26.6 % (43.0-81.0); PLATELET COUNT (AUTO) 370 K/uL (150-450); RED BLOOD CELL COUNT(AUTO) 3.55 MIL/uL (4.0-5.2); WHITE BLOOD COUNT (AUTO) 8.1 K/uL (4.3-11.0)
[2022-06-20] MEDS ORDERED: OLANZAPINE 10 MG VIAL IM PRN (14:30)
[2022-06-20] MEDS ORDERED: OLANZAPINE 10 MG VIAL IM ONE (14:30)
[2022-06-20 14:39] LABS: CALCIUM, SERUM 9.1 mg/dL (8.5-10.1); CREATININE 0.8 mg/dL (0.6-1.3); MAGNESIUM 1.5 mg/dL (1.8-2.4); PHOSPHORUS 4.4 mg/dL (2.5-4.9)
--- NOTE | 2022-06-20 14:42 | NUR ---
RN NOTE PT WAS SEEN BY DR. SHARMA, PER DR. SHARMA PT WAS SCREAMING AND AGITATED. DR. SHARMA ORDERED TO GIVE ZYPREXA 10MG IM X1 ONE TIME DOSE NOW.
--- NOTE | 2022-06-20 14:49 | NUR ---
RN NOTE ZYPREXA 10MG IM ADMINISTERED ORDERED ONE TIME DOSE FOR AGITATION AND COMBATIVENESS. WILL MONITOR AND REASSESS PT.
--- NOTE | 2022-06-20 14:59 | NUR ---
RN NOTE CHARGED NURSE MYLES SPOKE WITH GERARD FROM OR. PER GERARD, PT IS NOW SCHEDULED FOR A EGD WITH PEG PLACEMENT WITH DR. BIANCHI TOMORROW 06/21/22 AT 0900.
--- NOTE | 2022-06-20 15:45 | NUR ---
RN NOTE REASSESSED PT'S BEHAVIOR AFTER ADMINISTERING ZYPREXA 10MG IM ORDERED. MEDICATION IS EFFECTIVE. PT IS CALM WITH NO EPISODES OF SCREAMING/YELLING AND UNTOWARD BEHAVIOR TOWARDS STAFF AT THIS TIME. WILL CONTINUE TO MONITOR PT.
--- NOTE | 2022-06-20 19:19 | NUR ---
MS RN CLOSING NOTE PT IN BED ASLEEP, EASILY AROUSED. A/O X1-2, CONFUSED. REORIENTED PT NEEDED. ON RA, TOLERATING WELL. NO SOB NOTED. NOT IN ANY SIGN OF RESPIRATORY DISTRESS. IV ACCESS RFA G#22 INTACT AND PATENT, WITH LR INFUSING AT 80ML/HR. ALL NEEDS ATTENDED. KEPT CLEAN AND COMFORTABLE. TURNED AND REPOSITIONED Q2HRS AND NEEDED. SAFETY MEASURES IN PLACE: BED IN LOWEST AND LOCKED POSITION, SIDE RAILS UPX2, AND CALL LIGHT WITHIN REACH. ENDORSED TO WHOLESALE PARTS SALESPERSON NURSE FOR REY.
--- NOTE | 2022-06-20 19:30 | NUR ---
RN OPENING NOTE PATIENT IN BED,AWAKE, EASILY AWAKENED. MUMBLING WORDS, A/O X 1-2. CONFUSED. NO PAIN VERBALIZED AT THIS TIME. RFA 22G IV ACCESS PATENT AND INTACT, INFUSING LR AT 80 ML/HR. PATIENT NOT IN ANY APPARENT DISTRESS. TO BE NPO AFTER MN FOR PEG TUBE PLACEMENT AT 0900 TOMORROW. SAFETY MEASURES IN PLACE: BED LOCKED AND IN LOWEST POSITION, CALL LIGHT WITHIN REACH, SIDE RAILS UP. BED ALARM ON. WILL MONITOR PATIENT CLOSELY.
[2022-06-20 20:00] VITALS: BP 121/73
--- NOTE | 2022-06-20 20:30 | NUR ---
RN NOTE PATIENT PULLED OUT IV ON THE RFA, WILL RE-INSERT NEW IV ACCESS.
[2022-06-20] MEDS: MIRTAZAPINE 15 MG TABLET PO SCH (21:14)
[2022-06-20] MEDS: ENOXAPARIN SODIUM 40 MG/0.4 ML DISP.SYRIN SQ SCH (21:14)
--- NOTE | 2022-06-20 21:14 | NUR ---
RN NOTE PATIENT STATES THAT SHE DOESN'T TAKE ANY MEDICATIONS. SAYS "I DON'T NEED ANY MEDICATIONS, I JUST WANT TO WATCH TV, WHAT ELSE DO YOU NEED FROM ME". PURPOSE, USES, RISK AND BENEFITS EDUCATION PROVIDED, STILL REFUSES MEDS.
[2022-06-20 22:07] LABS: EOSINOPHILS % (MANUAL) 1 % (0-4); LYMPHOCYTES % (MANUAL) 41 % (16-48); MONOCYTES % (MANUAL) 6 % (0-11.0); NEUTROPHILS % (MANUAL) 52 (42-76)
[2022-06-20] MEDS ORDERED: HALOPERIDOL LACTATE INJ 5 MG/ML VIAL IM ONE (23:30)
--- NOTE | 2022-06-20 23:40 | NUR ---
RN NOTE INFORMED DR. GEORGES IRISH MOSS BLEACHER RE: PATIENT'S BEHAVIOR. PATIENT EXTREMELY AGGRESSIVE AND COMBATIVE, YELLING OUT PROFANITY, CALLING STAFF NAMES. KICKING, SPITTING, AND SCRATCHING STAFF. MD ORDERED HALDOL IM 2 MG ONCE. ALSO NOTIFIED MD BOYER PATIENT'S POTASSIUM LEVEL OF 3.0, ORDERED 40 MEQ IV KCL. ORDER READ BACK AND CARRIED OUT.
[2022-06-20] MEDS: POTASSIUM CL. PREMIX PERIPHER. 50 ML IV SCH (23:49)
[2022-06-21] MEDS ORDERED: POTASSIUM CHLORIDE 10 MEQ/50 ML PREMIXED IVPB FOR PERIPHERAL LINE IV ONE
[2022-06-21] MEDS: POTASSIUM CL. PREMIX PERIPHER. 50 ML IV SCH ×5 (01:17→12:44)
--- NOTE | 2022-06-21 04:44 | NUR ---
RN NOTE HUNG LAST KCL BAG, IV ACCESS STILL PATENT, NO INFILTRATION OR REDNESS NOTED ON THE IV SITE. PATIENT STILL COMBATIVE AND VERBALLY AGGRESSIVE.
[2022-06-21 06:54] LABS: BASOPHILS % (AUTO) 0.6 % (0.0-2.0); EOSINOPHILS % (AUTO) 2.2 % (0.0-6.0); HEMATOCRIT 31 % (33-45); HEMOGLOBIN 10.5 g/dL (11.5-14.8); LYMPHOCYTES % (AUTO) 41.2 % (20.0-44.0); MEAN CORPUSCULAR HGB CONC 34 g/dl (31.0-36.0); MEAN CORPUSCULAR VOLUME 91 fL (82-100); MONOCYTES # (AUTO) 0.9 K/uL (0.1-1.30); MONOCYTES % (AUTO) 12.5 % (2.0-12.0); NEUTROPHILS # (AUTO) 3.1 K/uL (1.8-8.9); NEUTROPHILS % (AUTO) 43.5 % (43.0-81.0); PLATELET COUNT (AUTO) 365 K/uL (150-450); RED BLOOD CELL COUNT(AUTO) 3.44 MIL/uL (4.0-5.2); WHITE BLOOD COUNT (AUTO) 7.2 K/uL (4.3-11.0)
[2022-06-21 07:24] LABS: CALCIUM, SERUM 8.8 mg/dL (8.5-10.1); CREATININE 0.7 mg/dL (0.6-1.3); MAGNESIUM 1.3 mg/dL (1.8-2.4); PHOSPHORUS 3.8 mg/dL (2.5-4.9); POTASSIUM 3.3 mmol/L (3.5-5.1)
--- NOTE | 2022-06-21 07:31 | NUR ---
RN CLOSING NOTE PATIENT STABLE, STILL ON TERA SOFT WRIST RESTRAINTS. NO INJURIES OBTAINED FROM RESTRAINTS DURING THE SHIFT. NOT IN ANY APPARENT DISTRESS. ALL NEEDS MET AND ATTENDED. ALL ORDERS CARRIED OUT. PATIENT'S CARE ENDORSED TO DAY SHIFT RN FOR REY.
--- NOTE | 2022-06-21 07:34 | NUR ---
RN OPENING NOTE PATIENT IN BED, SOFT WRIST RESTRAINTS BILATERALLY, PATIENT DELUSIONAL, MUMBLING TO SELF, FLIGHT OF IDEAS, TEARFUL AT TIMES. RESPIRATIONS DEEP, NON-LABORED, BOWEL SOUNDS POSITIVE. WILL MONITOR AND ASSIST. SIDE RAILS UP X4, BED LOCKED. FREQUENT CHECKS.
[2022-06-21 08:24] VITALS: BP 140/70
[2022-06-21] MEDS: QUETIAPINE FUMARATE 100 MG TABLET PO SCH ×2 (08:24→17:37)
[2022-06-21] MEDS: LEVETIRACETAM SOL (5 ML) 100 MG/ML UDC PO SCH ×2 (08:24→21:22)
[2022-06-21] MEDS: LEVOTHYROXINE SODIUM 75 MCG TABLET PO SCH (08:25)
[2022-06-21] MEDS: risperiDONE 1 MG TABLET PO SCH ×2 (08:25→17:37)
[2022-06-21] MEDS: LITHIUM CARBONATE 150 MG CAPSULE PO SCH ×2 (08:25→21:23)
[2022-06-21] MEDS: METFORMIN 500 MG TABLET PO SCH ×2 (08:25→17:37)
[2022-06-21] MEDS: DOCUSATE SODIUM 100 MG CAPSULE PO SCH (08:41)
[2022-06-21] MEDS: Magnesium 1GM/D5W 100ML PREMIX 100 ML IV SCH ×7 (11:30→17:10)
[2022-06-21 12:32] VITALS: BP 116/60
[2022-06-21] MEDS ORDERED: POTASSIUM CL. PREMIX PERIPHER. 50 ML IV SCH (15:00)
[2022-06-21 16:20] VITALS: BP 97/59
--- NOTE | 2022-06-21 18:46 | NUR ---
RN CLOSING NOTE PATIENT STABLE, STILL ON BILATERAL SOFT WRIST RESTRAINTS. GT PLACED, PATENT, FLUSHED. .MEDS GIVEN PER ORDERS, BEGIN TF TOMORROW PER PREVIOUS ORDERS. NOT IN ANY APPARENT DISTRESS. ALL NEEDS MET AND ATTENDED. K REPLACED, MAG REPLACED. CBC, BMP IN AM, ALL ORDERS CARRIED OUT. MONITOR ASSIST.
--- NOTE | 2022-06-21 19:13 | NUR ---
RN OPENING NOTE PATIENT ASLEEP IN BED. A/OX2. NO S/S OF DISTRESS, BREATHING WITHOUT DIFFICULTY ON ROOM AIR. RAC #22 INTACT AND PATENT W/ LR 80 ML/HR. SAFETY MEASURES IN PLACE: BED LOCKED AND AT LOWEST POSITION, RAILS UP X2, CALL HERNANDEZ WITHIN REACH. WILL CONTINUE TO MONITOR PATIENT.
[2022-06-21 20:00] VITALS: BP 101/62
[2022-06-21] MEDS: MIRTAZAPINE 15 MG TABLET PO SCH (21:23)
[2022-06-21] MEDS: ENOXAPARIN SODIUM 40 MG/0.4 ML DISP.SYRIN SQ SCH (21:25)
--- NOTE | 2022-06-22 04:10 | NUR ---
RN NOTE PATIENT HAD TF PEG INSERTED 06/22. IN REVIEWING WITH MY CHARGE NURSE, ANNA, PATIENT SHOULD HAVE A DIETARY CONSULT PRIOR TO TF INITIATION DUE TO PATIENT'S BEING DM. DIETARY CLARIFICATION IS NEEDED WHETHER JEVITY OR GLUCERNA IS TO BE STARTED. DIETARY CONSULT ORDERED. PATIENT STABLE; WILL CONTINUE TO MONITOR PATIENT.
[2022-06-22] MEDS: IV LR 1000 ML 1,000 ML IV PRN (06:24)
[2022-06-22 06:41] LABS: BASOPHILS # (AUTO) 0.1 K/uL (0.0-0.2); BASOPHILS % (AUTO) 0.5 % (0.0-2.0); EOSINOPHILS % (AUTO) 2.4 % (0.0-6.0); HEMATOCRIT 30 % (33-45); HEMOGLOBIN 10.1 g/dL (11.5-14.8); LYMPHOCYTES # (AUTO) 2.8 K/uL (0.8-4.8); LYMPHOCYTES % (AUTO) 28.7 % (20.0-44.0); MEAN CORPUSCULAR HGB CONC 34 g/dl (31.0-36.0); MEAN CORPUSCULAR VOLUME 92 fL (82-100); MONOCYTES # (AUTO) 1.3 K/uL (0.1-1.30); MONOCYTES % (AUTO) 13.5 % (2.0-12.0); NEUTROPHILS # (AUTO) 5.4 K/uL (1.8-8.9); NEUTROPHILS % (AUTO) 54.9 % (43.0-81.0); PLATELET COUNT (AUTO) 326 K/uL (150-450); RED BLOOD CELL COUNT(AUTO) 3.26 MIL/uL (4.0-5.2); WHITE BLOOD COUNT (AUTO) 9.8 K/uL (4.3-11.0)
--- NOTE | 2022-06-22 06:52 | NUR ---
RN CLOSING NOTE PATIENT ASLEEP IN BED. A/OX2. NO S/S OF DISTRESS, BREATHING WITHOUT DIFFICULTY ON ROOM AIR. RAC #22 INTACT AND PATENT W/ LR 80ML/HR. SAFETY MEASURES IN PLACE: BED LOCKED IN PLACE & AT LOWEST POSITION, RAILS UP X2, CALL HERNANDEZ WITHIN REACH. WILL ENDORSE TO NEXT SHIFT FOR REY.
[2022-06-22 07:17] LABS: CALCIUM, SERUM 8.5 mg/dL (8.5-10.1); CREATININE 0.6 mg/dL (0.6-1.3); PHOSPHORUS 3.9 mg/dL (2.5-4.9)
--- NOTE | 2022-06-22 07:30 | NUR ---
RN OPENING NOTES PATIENT LYING IN BED AT BEGINNING OF SHIFT S/P PEG PLACEMENT ON 06/21. A/O X 1-2 WITH PERIODS OF CONFUSION. IV ACCESS TO RAC 22G WITH LR RUNNING AT 80 ML/HR. IV IV IS PATENT AND FLOWING WITHOUT PROBLEM. VITAL SIGNS STABLE AND SpO2= 100% ON RA. SOFT WRIST RESTRAINTS ARE ON CURRENTLY BASED ON NONCOMPLIANCE AND AGGRESSION NOTED ON THE ESCROW SECRETARY. G-TUBE IS PATENT AND MEDICATIONS ADMINISTERED PER ORDERED. Addendum: 06/22/22 at 1454 by KAILEY WINSTON RN SAFETY PRECAUTIONS IN PLACE. BED IN LOWEST LOCKED POSITION, HOB ELEVATED, SIDE RAILS UP X2, AND CALL LIGHT AND TABLE WITHIN REACH.
[2022-06-22 08:00] VITALS: BP 116/67
[2022-06-22] MEDS ORDERED: GLUCERNA 1.2 1,000 ML BOTTLE NG PRN (08:30)
[2022-06-22] MEDS: LITHIUM CARBONATE 150 MG CAPSULE PO SCH (09:41)
[2022-06-22] MEDS: LEVETIRACETAM SOL (5 ML) 100 MG/ML UDC PO SCH (09:42)
[2022-06-22] MEDS: METFORMIN 500 MG TABLET PO SCH (09:44)
[2022-06-22] MEDS: risperiDONE 1 MG TABLET PO SCH (09:44)
[2022-06-22] MEDS: QUETIAPINE FUMARATE 100 MG TABLET PO SCH (09:44)
[2022-06-22] MEDS: LEVOTHYROXINE SODIUM 75 MCG TABLET PO SCH (09:45)
[2022-06-22] MEDS ORDERED: DOCUSATE SODIUM LIQ 100 MG/10 ML UDC GT SCH (10:00)
[2022-06-22] MEDS ORDERED: NUT.237L45 NG (10:31)
[2022-06-22] MEDS ORDERED: POTASSIUM CHLORIDE 20 MEQ POWDER PACKET GT ONE (11:00)
--- NOTE | 2022-06-22 14:27 | NUR ---
Patient left at [address] [facility], accompanied by EMT and livery car driver. Awake, alert and oriented, in stable condition. Discharge summary and medication instructions provided to the EMT to give to staff at patient's SNF. Patient's new prescription sent electronically by MD to pt's preferred pharmacy. She was admitted without any belongings and left without any belongings.
== END 2022-06-22 14:15 | DRG 640 ==
LOC: ER 15:44 → MED 20:42
PROVIDERS: ADMIT Nurse Practitioner Acute Care; ATTEND Nurse Practitioner Acute Care
PROC: 0DH63UZ Insertion of Feeding Device into Stomach, Percutaneous Approach (ICD-10-PCS; principal; 2022-06-21)
DX: R62.7 Adult failure to thrive (principal); E43 Unspecified severe protein-calorie malnutrition; Z68.1 Body mass index [BMI] 19.9 or less, adult; F03.91 Unspecified dementia, unspecified severity, with behavioral disturbance; E03.9 Hypothyroidism, unspecified; E11.9 Type 2 diabetes mellitus without complications; F20.9 Schizophrenia, unspecified; F31.9 Bipolar disorder, unspecified; F41.9 Anxiety disorder, unspecified; G40.909 Epilepsy, unspecified, not intractable, without status epilepticus; I10 Essential (primary) hypertension; I25.10 Atherosclerotic heart disease of native coronary artery without angina pectoris; J44.9 Chronic obstructive pulmonary disease, unspecified; Z79.84 Long term (current) use of oral hypoglycemic drugs; Z87.891 Personal history of nicotine dependence; Z20.822 Contact with and (suspected) exposure to COVID-19
CPT/HCPCS: 36415; 43760; 71045-TC; 80048-TC; 80076-TC; 83735-TC; 84100-TC; 85025-TC; 85730-TC; 87081-TC; C9803; G0378; J0690; J1630; J1650; J1953; J2704; J3475; J3480; J3490; J7030; J7040; J7120

== ENCOUNTER 2022-06-26 00:32 | Emergency (ER) | payer MEDICARE, OTHER ==
[~2022-06-26] VITALS: Ht 172.7 cm; Wt 52.6 kg
[~2022-06-26 00:32] MED LIST changes: -ACET325T53 PO; -ASCO500C17 PO; -INSU100V3 IJ; +MIRT-90 PO; -NA P133E RC; +NUT.237L45 NG; +RISP0.2515 PO; -RISP2TAB5 PO
--- NOTE | 2022-06-26 01:00 | NUR ---
TO ER BED 10. BIBPA FROM SNF FOR PULLED OUT GT. PT IS CONFUSED. RR EVEN AND NON LABORED. CONNECTED TO MONITOR. AWAITING MD ZUNIGA
[2022-06-26] MEDS ORDERED: IV NS 0.9% 500 ML BAG IV ONE (01:30)
[2022-06-26] MEDS ORDERED: DIATR MEGLU/DIATRIZOATE SODIUM 30 ML BOTTLE (GASTROGRAPHIN) ONE (02:09)
--- NOTE | 2022-06-26 04:10 | NUR ---
[facility] ETA 1HR
--- NOTE | 2022-06-26 05:49 | NUR ---
[facility] AT BEDSIDE FOR TRANSPORTATION, REPORT GIVEN TO GEORGINA
--- NOTE | 2022-06-26 05:58 | NUR ---
PT LEFT VIA [place] WITH [facility] BACK TO FACILITY
[2022-06-26 05:59] VITALS: BP 116/64
== END 2022-06-26 06:00 ==
LOC: ER 00:39
DX: Z43.1 Encounter for attention to gastrostomy (principal); I10 Essential (primary) hypertension; E11.9 Type 2 diabetes mellitus without complications; F41.9 Anxiety disorder, unspecified; F31.9 Bipolar disorder, unspecified; Z79.899 Other long term (current) drug therapy
CPT/HCPCS: 99284; 43762; 74018; J7040; Q9963; A4624

== ENCOUNTER 2022-07-05 20:47 | Inpatient (IN) | payer MEDICARE, OTHER ==
[~2022-07-05] VITALS: Ht 162.6 cm; Wt 44.5 kg
[~2022-07-05 20:47] MED LIST changes: +IBUP-1953 GT; -IBUP-1953 PO; +LEVE500T9 GT; -LEVE500T9 PO; +LEVO25TA7 GT; -LEVO25TA7 PO; +MAGN400O6 GT; -MAGN400O6 PO; +METF500T GT; -METF500T PO; +MULT-447 GT; -MULT-447 PO; +QUET100T GT; -QUET100T PO; +RISP0.2515 GT; -RISP0.2515 PO
--- NOTE | 2022-07-05 21:10 | NUR ---
BIBPA FROM [facility] C/O PT PULLING AT G TUBE. GTUBE PATENT AND INTACT. TOLERATING R/A WELL WITH NO SOB. SAFETY MEASURES IN PLACE
[2022-07-05] MEDS ORDERED: DIATR MEGLU/DIATRIZOATE SODIUM 30 ML BOTTLE (GASTROGRAPHIN) ONE (21:20)
--- NOTE | 2022-07-05 21:26 | NUR ---
RAD AT BEDSIDE
--- NOTE | 2022-07-05 22:20 | NUR ---
PT TO CT
--- NOTE | 2022-07-05 22:36 | NUR ---
pt returned to er bed [address]
--- NOTE | 2022-07-06 00:09 | NUR ---
RAC #20G S/L BLOOD COLLECTED AND COVID ANTIGEN SWAB COLLECTED AND SENT TO LAB
--- NOTE | 2022-07-06 00:10 | NUR ---
D/C GTUBE PER DR. HALEY CLEARY ORDERS
--- NOTE | 2022-07-06 00:11 | NUR ---
OUTSIDE PLANT ENGINEER AT PT'S BEDSIDE
[2022-07-06 00:25] LABS: BASOPHILS % (AUTO) 0.3 % (0.0-2.0); EOSINOPHILS % (AUTO) 1.2 % (0.0-6.0); HEMATOCRIT 32 % (33-45); HEMOGLOBIN 10.1 g/dL (11.5-14.8); LYMPHOCYTES # (AUTO) 1.9 K/uL (0.8-4.8); LYMPHOCYTES % (AUTO) 27.5 % (20.0-44.0); MEAN CORPUSCULAR HGB CONC 32 g/dl (31.0-36.0); MEAN CORPUSCULAR VOLUME 91 fL (82-100); MONOCYTES # (AUTO) 0.7 K/uL (0.1-1.30); MONOCYTES % (AUTO) 10.1 % (2.0-12.0); NEUTROPHILS # (AUTO) 4.1 K/uL (1.8-8.9); NEUTROPHILS % (AUTO) 60.9 % (43.0-81.0); PLATELET COUNT (AUTO) 312 K/uL (150-450); RED BLOOD CELL COUNT(AUTO) 3.47 MIL/uL (4.0-5.2); WHITE BLOOD COUNT (AUTO) 6.8 K/uL (4.3-11.0)
[2022-07-06 00:36] LABS: CREATININE 0.6 mg/dL (0.6-1.3); POTASSIUM 3.5 mmol/L (3.5-5.1)
[2022-07-06] MEDS ORDERED: LORAZEPAM INJ 2 MG/ML VIAL IV PRN (02:00)
[2022-07-06] MEDS ORDERED: ONDANSETRON HCL/PF 4 MG/2 ML VIAL IVP PRN (02:00)
[2022-07-06] MEDS ORDERED: ACETAMINOPHEN 650 MG/SUPP.RECT RC PRN (02:00)
[2022-07-06] MEDS ORDERED: MORPHINE SULFATE INJ 2 MG/ML DISP.SYRIN IV PRN (02:00)
[2022-07-06] MEDS ORDERED: Z GUARD REMEDY 4 OZ OINT TP PRN (02:00)
--- NOTE | 2022-07-06 02:39 | NUR ---
REPORT GIVEN TI CARLO BUENO
[2022-07-06 03:15] VITALS: BP 88/51
--- NOTE | 2022-07-06 03:16 | NUR ---
PT TRANSFERRED TO 3 VIA HOSPITAL PROTOCOL. VSS. ALL BELONGINGS WITH PT.
--- NOTE | 2022-07-06 03:35 | NUR ---
MS INTEGRATION SOFTWARE DEVELOPER NOTE RECEIVED THIS 71 YO FEMALE PT FROM ER VIA [employer]. PATIENT IS AWAKE, ALERT AND ORIENTED X 1. ON ROOM AIR; TOLERATING WELL. BREATHING EVEN AND NONLABORED. NOT IN ANY FORM OF RESPIRATORY DISTRESS. NO S/SX OF PAIN OR DISCOMFORT NOTED. SKIN AND BODY ASSESSMENT DONE; PICTURES TAKEN PLACED TO CHART. ORIENTED TO STAFF, ROOM AND UNIT. WITH IV ACCESS ON RIGHT ANTECUBITAL 20g; PATENT, INTACT AND SALINE LOCKED. NEEDS ANTICIPATED AND ATTENDED. PERSONAL BELONGINGS CHECKED AND INVENTORY DONE. SAFETY MEASURES IMPLEMENTED: CALL LIGHT AND TABLE WITHIN REACH, SIDE RAILS UP X 2, BED IN LOWEST LOCKED POSITION. WILL CONTINUE PLAN OF CARE.
[2022-07-06] MEDS: IV D5/0.45 NACL 1,000 ML IV PRN ×2 (03:52→16:30)
[2022-07-06] MEDS: ENOXAPARIN SODIUM 30 MG/0.3 ML DISP.SYRIN SQ SCH ×2 (05:57→21:00)
--- NOTE | 2022-07-06 05:57 | NUR ---
RN NOTE LOVENOX 0.3 ML SQ HELD PER PATIENT'S REQUEST.
--- NOTE | 2022-07-06 06:50 | NUR ---
MS RN CLOSING NOTE PATIENT IS AWAKE, A/O X 1. STABLE ON ROOM AIR. RESPIRATION EVEN AND UNLABORED. IN NO ACUTE DISTRESS. NO S/SX OF PAIN OR DISCOMFORT NOTED. WITH IV ACCESS ON RAC 20g RUNNING WITH D5 1/2 NS 1L REGULATED @ 75ML/HR; FLUSHES WELL. ALL NEEDS ATTENDED. SAFETY MEASURES MAINTAINED: CALL LIGHT AND TABLE WITHIN REACH, SIDE RAILS UP X 3, BED IN LOWEST LOCKED POSITION. ENDORSED TO ZAIN MATOS FOR REY.
--- NOTE | 2022-07-06 07:35 | NUR ---
MS RN OPENING NOTE PATIENT IS AWAKE, A/O X 1. RELUCTANT TO SHOW HER FACE, ON RA, STABLE WITHOUT ANY S/SX OF DISTRESS. RESPIRATION EVEN AND UNLABORED. PATIENT DENIES PAIN OR DISCOMFORT NOTED. WITH IV ACCESS ON RAC 20G RUNNING WITH D5 1/2 NS 1L RUNNING @ 75ML/HR; FLUSHES WELL. SAFETY MEASURES IN PLACE: BED IN LOWEST LOCKED POSITION, SIDE RAILS UP X3 , CALL LIGHT AND TABLE WITHIN REACH. WILL CONTINUE TO MONITOR DURING MY SHIFT.
[2022-07-06 08:00] VITALS: BP 90/57
[2022-07-06] MEDS ORDERED: PANTOPRAZOLE 40 MG VIAL IV SCH (09:00)
--- NOTE | 2022-07-06 09:00 | NUR ---
CARLO NOTES - AM CARE WOUND CARE AND PERINEAL CARE PROVIDED ON THE SACRAL AREA, PT HAD A MODERATE AMOUNT BM OF FORMED STOOLS. Addendum: 07/06/22 at 1019 by JAYDA COMER RN WRONG PATIENT -
--- NOTE | 2022-07-06 11:45 | NUR ---
RN NOTES - NPO MAINTAINED ORDERED
--- NOTE | 2022-07-06 15:54 | NUR ---
RN NOTES RECEIVED A CALL FROM DR DORMAN THAT HE IS GOING TO SEE THE PATIENT AT AROUND 5PM, REQUESTED TO PREPARE GAUGE 20 G-TUBE, CALLED [facility] [employer] AND SPOKE TO ANDREW WHO WILL BE SENDING THE SUPPLY HERE.
[2022-07-06 16:00] VITALS: BP 98/56
--- NOTE | 2022-07-06 17:15 | NUR ---
RN NOTES - DR DORMAN AT BEDSIDE.
--- NOTE | 2022-07-06 18:15 | NUR ---
RN NOTES DR DORMAN RECOMMENDS THAT THE PATIENT'S G-TUBE BE DONE UNDER ANESTHESIA PATIENT'S G-TUBE MIGHT BE INFECTED.
--- NOTE | 2022-07-06 18:45 | NUR ---
MS RN CLOSING NOTE PATIENT IS AWAKE, A/O X 1. STILL RELUCTANT TO SHOW HER FACE, ON RA, STABLE WITHOUT ANY S/SX OF DISTRESS. RESPIRATION EVEN AND UNLABORED. PATIENT DENIED PAIN OR DISCOMFORT NOTED. STILL WITH IV ACCESS ON RAC 20G RUNNING WITH D5 1/2 NS 1L RUNNING @ 75ML/HR; FLUSHES WELL. SAFETY MEASURES IN PLACE: BED IN LOWEST LOCKED POSITION, SIDE RAILS UP X3 , CALL LIGHT AND TABLE WITHIN REACH. ALL NEEDS ATTENDED. WILL ENDORSE TO THE NEXT SHIFT.
--- NOTE | 2022-07-06 19:27 | NUR ---
RN OPENING NOTE PATIENT IN BED, AWAKE, COVERING HER FACE WITH A BLANKET. PATIENT IS A/O X 1-2, NEEDS REORIENTATION. PATIENT IS ON RA, TOLERATING WELL. NO SOB OR RESPIRATORY DISTRESS NOTED. PATIENT NOTED TO HAVE A DRESSING ON HER ABD COVERING HER STOMA. PATIENT DOES NOT REPORT ANY PAIN AT THIS TIME. RAC 20 G PATENT AND INTACT WITH ONGOING D5 1/2 NS IVF. SAFETY MEASURES IN PLACE: BED LOCKED AND IN LOWEST POSITION, CALL LIGHT WITHIN REACH, SIDE RAILS UP. WILL MONITOR PATIENT CLOSELY.
[2022-07-06 20:00] VITALS: BP 116/51
--- NOTE | 2022-07-06 20:37 | NUR ---
RN NOTE OBTAINED ORDER FOR ACCUCHECK WITH SS NPO COVERAGE FROM ANGELA MACHADO CROZE CUTTER HELPER MD. CONFIRMED WITH LAB ALSO THAT PATIENT IS COVID NEGATIVE SINCE IT DOES NOT SHOW ON HER EMR. CHARGE NURSE ANNA SCHULTZ.
[2022-07-06] MEDS ORDERED: DEXTROSE 50%-WATER 50 ML DISP.SYRIN IV PRN (21:00)
--- NOTE | 2022-07-06 21:20 | NUR ---
PATIENT REFUSED TO HAVE LOVENOX ADMINISTERED. PATIENT ALSO BROKE IV TUBING, PATIENT'S IV ACCESS STILL IN PLACE AT THIS TIME.
--- NOTE | 2022-07-06 21:31 | NUR ---
PATIENT REFUSING IV FLUIDS NOW, STATES" I DON'T NEED NO WATER, NO OXYGEN, NOTHING" EXPLAINED RISK AND BENEFITS, STILL CONTINUES TO REFUSE.
--- NOTE | 2022-07-07 00:50 | NUR ---
RN NOTE PATIENT REFUSING TO HAVE ACCUCHECK DONE. RISK AND BENEFITS EDUCATION GIVEN. PATIENT STILL CONTINUES TO REFUSE. WILL MONITOR PATIENT FOR ANY SYMPTOMS FOR HYPOGLYCEMIA/HYPERGLYCEMIA.
[2022-07-07] MEDS: BLOOD SUGAR DIAGNOSTIC 1 EACH STRIP IN SCH ×4 (05:28→17:31)
--- NOTE | 2022-07-07 07:14 | NUR ---
RN CLOSING NOTE PATIENT IN BED, EYES CLOSED, AWAKENED WITH VERBAL AND TOUCH STIMULI. PATIENT IS A/O X 1-2, NEEDS REORIENTATION. PATIENT IS ON RA, TOLERATING WELL. NO SOB OR RESPIRATORY DISTRESS NOTED. DRESSING CHANGED ON ABD/GT STOMA. PATIENT DOES NOT REPORT ANY PAIN AT THIS TIME. RAC 20 G PATENT AND INTACT, ON SALINE LOCK. PATIENT CONTINUES TO BE UNCOOPERATIVE WITH SOME OF HER TX. SAFETY MEASURES IN PLACE: BED LOCKED AND IN LOWEST POSITION, CALL LIGHT WITHIN REACH, SIDE RAILS UP. ALL NEEDS MET AND ATTENDED. ALL ORDERS CARRIED OUT. WILL ENDORSE TO DAY SHIFT NURSE FOR RYE.
--- NOTE | 2022-07-07 07:52 | NUR ---
RN OPENING NOTE- PATIENT IN BED, SLEEPING THOUGH EASILY AWAKENED, PATIENT IS A/O X 1-2, NEEDS REORIENTATION. CONFUSED. PATIENT IS ON RA, TOLERATING WELL. NO SOB OR RESPIRATORY DISTRESS NOTED. PATIENT DENIES PAIN. IV HEPLOCK LAYING ON FLOOR. PT REMOVED. PATIENT CONTINUES TO BE UNCOOPERATIVE WITH SOME OF HER TX. SAFETY MEASURES IN PLACE: BED LOCKED AND IN LOWEST POSITION, CALL LIGHT WITHIN REACH, SIDE RAILS UP. MONITOR / ASSIST
[2022-07-07 08:00] VITALS: BP 150/76
[2022-07-07] MEDS ORDERED: NUT.237L30 GT (09:09)
[2022-07-07] MEDS ORDERED: LITH150C GT (09:09)
[2022-07-07] MEDS ORDERED: DOCU50LI GT (09:09)
[2022-07-07] MEDS ORDERED: PANTOPRAZOLE 40 MG VIAL IV SCH (10:00)
--- NOTE | 2022-07-07 10:09 | NUR ---
RN NOTE- NO IV ACCESS FOR RX. PT REFUSES REINSERTION. AWARE. DR DORMAN SAW PT. MAY GET GT TODAY
--- NOTE | 2022-07-07 12:21 | NUR ---
RN NOTE- PT YELLING TO EAT. ON PUREED DIET PREVIOUSLY BUT AWAITING GT PLACEMENT. CALLED DR DORMAN TO ADVISE. NO REPLY YET.
[2022-07-07 16:00] VITALS: BP 146/68
--- NOTE | 2022-07-07 18:28 | NUR ---
RN CLOSING NOTE- PATIENT IN BED, PATIENT IS A/O X 1 CONFUSED. PATIENT IS ON RA, TOLERATING WELL. NO SOB OR RESPIRATORY DISTRESS NOTED. PATIENT DENIES PAIN. NO IV ACCESS, REFUSED RX AND ACCU CHECKS. PATIENT OPPOSITIONAL TO CARE. MAY GET GT PLACED TOMORROW BY DR DORMAN. DRESSING TO GT SITE CHANGED. . SAFETY MEASURES IN PLACE: BED LOCKED AND IN LOWEST POSITION, CALL LIGHT WITHIN REACH, SIDE RAILS UP. MONITOR / ASSIST
--- NOTE | 2022-07-07 19:20 | NUR ---
MS RN OPENING NOTE RECEIVED PATIENT IN BED; AWAKE, ALERT AND ORIENTED X 1. FACE COVERED WITH BLANKET. ON ROOM AIR; TOLERATING WELL. NOT IN ANY FORM OF RESPIRATORY DISTRESS. NO S/SX OF ANY PAIN OR DISCOMFORT AT THIS TIME. RESPIRATION EVEN AND UNLABORED. NO IV ACCESS. SAFETY MEASURES IMPLEMENTED: CALL LIGHT AND TABLE WITHIN REACH, SIDE RAILS UP X2, BED IN LOWEST LOCKED POSITION. WILL CONTINUE TO MONITOR.
[2022-07-07 20:00] VITALS: BP 98/57
[2022-07-07] MEDS: ENOXAPARIN SODIUM 30 MG/0.3 ML DISP.SYRIN SQ SCH (21:00)
--- NOTE | 2022-07-08 00:22 | NUR ---
RN NOTE PATIENT REFUSED TO HAVE ACCU-CHECK DONE. EXPLAINED RISK AND BENEFITS OF FOLLOWING MEDICAL REGIMEN; STILL CONTINUES TO REFUSE. WILL CONTINUE TO MONITOR FOR ANY S/SX OF HYPOGLYCEMIA/HYPERGLYCEMIA.
[2022-07-08] MEDS: BLOOD SUGAR DIAGNOSTIC 1 EACH STRIP IN SCH ×3 (06:00→11:52)
--- NOTE | 2022-07-08 06:22 | NUR ---
RN NOTE PATIENT KEPT ON YELLING AND SCRATCHES WHEN DOING BEDSIDE CARE. PATIENT REFUSED TO HAVE ACCU-CHECK DONE. EXPLAINED RISK AND BENEFITS OF FOLLOWING MEDICAL REGIMEN; STILL CONTINUES TO REFUSE. WILL CONTINUE TO MONITOR FOR ANY S/SX OF HYPOGLYCEMIA/HYPERGLYCEMIA.
--- NOTE | 2022-07-08 06:55 | NUR ---
MS RN CLOSING NOTE PATIENT IN BED; AWAKE, A/O X 1. FACE COVERED WITH BLANKET. STABLE ON ROOM AIR. IN NO ACUTE DISTRESS. DENIES ANY PAIN OR DISCOMFORT AT THIS TIME. RESPIRATION EVEN AND UNLABORED. NO IV ACCESS. SAFETY MEASURES MAINTAINED: CALL LIGHT AND TABLE WITHIN REACH, SIDE RAILS UP X3, BED IN LOWEST LOCKED POSITION. ENDORSED TO MORNING SHIFT FOR REY.
[2022-07-08 07:14] LABS: BASOPHILS % (AUTO) 0.4 % (0.0-2.0); EOSINOPHILS % (AUTO) 1.4 % (0.0-6.0); HEMATOCRIT 29 % (33-45); HEMOGLOBIN 9.7 g/dL (11.5-14.8); LYMPHOCYTES # (AUTO) 2.8 K/uL (0.8-4.8); LYMPHOCYTES % (AUTO) 38.7 % (20.0-44.0); MEAN CORPUSCULAR HGB CONC 34 g/dl (31.0-36.0); MEAN CORPUSCULAR VOLUME 90 fL (82-100); MONOCYTES # (AUTO) 0.8 K/uL (0.1-1.30); NEUTROPHILS # (AUTO) 3.5 K/uL (1.8-8.9); NEUTROPHILS % (AUTO) 48.5 % (43.0-81.0); PLATELET COUNT (AUTO) 355 K/uL (150-450); RED BLOOD CELL COUNT(AUTO) 3.22 MIL/uL (4.0-5.2); WHITE BLOOD COUNT (AUTO) 7.2 K/uL (4.3-11.0)
[2022-07-08 07:31] LABS: CALCIUM, SERUM 8.7 mg/dL (8.5-10.1); CARBON DIOXIDE 30 mmol/L (21-32); CHLORIDE 99 mmol/L (98-107); CREATININE 0.7 mg/dL (0.6-1.3); GLUCOSE 117 mg/dL (74-106); POTASSIUM 3.5 mmol/L (3.5-5.1); SODIUM SERUM 136 mmol/L (136-145); UREA NITROGEN, BLOOD 11 mg/dL (7-18)
--- NOTE | 2022-07-08 07:57 | NUR ---
MS RN OPENING NOTES: RECEIVED PATIENT IN BED; AWAKE, A/O X 1. FACE COVERED WITH BLANKET. STABLE ON ROOM AIR, NO S/S OF SOB OR ACUTE DISTRESS. NO S/S OF PAIN OR DISCOMFORT AT THIS TIME. NO IV ACCESS, PT REFUSED. SAFETY MEASURES MAINTAINED: CALL LIGHT AND TABLE WITHIN REACH, SIDE RAILS UP X3, BED IN LOWEST LOCKED POSITION; WILL CONT WITH PLAN OF CARE THROUGHOUT SHIFT.
[2022-07-08 08:00] VITALS: BP 112/63
[2022-07-08] MEDS ORDERED: PANTOPRAZOLE 40 MG/PACK PACK PO SCH (09:30)
[2022-07-08] MEDS: INSULIN REGULAR, HUMAN 100 UNIT/ML 3 ML VIAL SQ PRN ×2 (11:44→12:23)
--- NOTE | 2022-07-08 12:23 | NUR ---
MS RN NOTES: PT REFUSED INSULIN, WHEN RN APPROACHED PT TO EXPLAIN THE MEDICATION TO BE ADMINISTERED, PT THREW HER MILK AT RN.
--- NOTE | 2022-07-08 15:18 | NUR ---
MS TEAM ASSISTANT NOTES: PT DC'D PER MD ORDER. CALLED MARCELLA KEARNEY, GAVE REPORT TO CARLO NEWMAN. PT STABLE AT DISCHARGE WITH VITALS WNL: BP= Addendum: 07/08/22 at 1526 by LESLI LEO RN BP - 115/70; HR- 89, RR- 20, O2 SAT 98% ON RA. PT HAD NO IV ACCESS, ID BAND REMOVED. BELONGINGS AND DC DOCUMENTS, SIGNED AND WITNESS BY 2 RNS. REPORT GIVEN TO EMT PERSONNEL, COMPANY [employer], RUN# [id number] UNIT# [id number]. PT LEFT UNIT VIA GURNEY TO AMBULANCE AT 1430.
== END 2022-07-08 14:55 | DRG 394 ==
LOC: ER 20:49 → MED 07-06 02:39
PROVIDERS: ADMIT Internal Medicine; ATTEND Internal Medicine
DX: K94.23 Gastrostomy malfunction (principal); E44.0 Moderate protein-calorie malnutrition; R64 Cachexia; Z68.1 Body mass index [BMI] 19.9 or less, adult; R62.7 Adult failure to thrive; G40.909 Epilepsy, unspecified, not intractable, without status epilepticus; I25.10 Atherosclerotic heart disease of native coronary artery without angina pectoris; E03.9 Hypothyroidism, unspecified; E11.9 Type 2 diabetes mellitus without complications; E88.09 Other disorders of plasma-protein metabolism, not elsewhere classified; Z79.84 Long term (current) use of oral hypoglycemic drugs; Z87.891 Personal history of nicotine dependence; F31.9 Bipolar disorder, unspecified; I10 Essential (primary) hypertension; F41.9 Anxiety disorder, unspecified; F03.90 Unspecified dementia, unspecified severity, without behavioral disturbance, psychotic disturbance, mood disturbance, and anxiety; Z20.822 Contact with and (suspected) exposure to COVID-19; Y83.8 Other surgical procedures as the cause of abnormal reaction of the patient, or of later complication, without mention of misadventure at the time of the procedure; Y73.8 Miscellaneous gastroenterology and urology devices associated with adverse incidents, not elsewhere classified; Y92.129 Unspecified place in nursing home as the place of occurrence of the external cause; J44.9 Chronic obstructive pulmonary disease, unspecified
CPT/HCPCS: 36415; 71045-TC; 74018; 80048-TC; 82962-TC; 85025-TC; 85730-TC; A6253; C9113; C9803; G0378; J1650; J1815; J3490; J7042; Q9963

== ENCOUNTER 2022-10-16 15:35 | Inpatient (IN) | payer MEDICARE, OTHER ==
[~2022-10-16] VITALS: Ht 162.6 cm; Wt 48.1 kg
[~2022-10-16 15:35] MED LIST changes: -DOCU-141 PO; +DOCU50LI PO; -IBUP-1953 GT; +IBUP-1953 PO; -LEVE500T9 GT; +LEVE500T9 PO; -LEVO25TA7 GT; +LEVO25TA7 PO; -MAGN400O6 GT; +MAGN400O6 PO; -METF500T GT; +METF500T PO; -MIRT-90 PO; -MULT-447 GT; +MULT-447 PO; +NUT.237L30 GT; -NUT.237L45 NG; -QUET100T GT; +QUET100T PO
--- NOTE | 2022-10-16 15:40 | NUR ---
RECEVED PT 72 YRS FEMALE CAME BY EMT TRANSFER FROM SNF FOR POOR APPETED AND POOR INTACK
--- NOTE | 2022-10-16 15:55 | NUR ---
AT BED SIDE PT REFUSED BLOOD TO DROW AND ESCREEMING AND SHOUTING ORVER VERBLY TO GIVE ATIVAN 1 MG IM NOW BEFOR BLOOD TO DROW
[2022-10-16] MEDS ORDERED: LORAZEPAM INJ 2 MG/ML VIAL ONE (16:04)
[2022-10-16] MEDS ORDERED: MORPHINE SULFATE INJ 2 MG/ML DISP.SYRIN IV ONE (16:30)
[2022-10-16] MEDS ORDERED: LORAZEPAM INJ 2 MG/ML VIAL IM ONE (17:00)
--- NOTE | 2022-10-16 17:10 | NUR ---
inserted ango catheter g [address] on [address] ac blood drow and sent to lab
[2022-10-16] MEDS ORDERED: ASCO-340 PO (17:13)
[2022-10-16 17:26] LABS: BASOPHILS % (AUTO) 0.6 % (0.0-2.0); EOSINOPHILS % (AUTO) 3.4 % (0.0-6.0); HEMATOCRIT 38 % (33-45); HEMOGLOBIN 12.3 g/dL (11.5-14.8); LYMPHOCYTES # (AUTO) 3.7 K/uL (0.8-4.8); LYMPHOCYTES % (AUTO) 59.7 % (20.0-44.0); MEAN CORPUSCULAR HGB CONC 33 g/dl (31.0-36.0); MEAN CORPUSCULAR VOLUME 93 fL (82-100); MONOCYTES # (AUTO) 0.4 K/uL (0.1-1.30); MONOCYTES % (AUTO) 6.6 % (2.0-12.0); NEUTROPHILS # (AUTO) 1.9 K/uL (1.8-8.9); NEUTROPHILS % (AUTO) 29.7 % (43.0-81.0); PLATELET COUNT (AUTO) 329 K/uL (150-450); RED BLOOD CELL COUNT(AUTO) 4.08 MIL/uL (4.0-5.2); WHITE BLOOD COUNT (AUTO) 6.3 K/uL (4.3-11.0)
[2022-10-16] MEDS ORDERED: ACETAMINOPHEN 325 MG TABLET PO PRN (17:30)
[2022-10-16] MEDS ORDERED: MAGNESIUM HYDROXIDE 30 ML UDC PO PRN ×2 (17:30)
[2022-10-16] MEDS ORDERED: ONDANSETRON HCL/PF 4 MG/2 ML VIAL IVP PRN (17:30)
[2022-10-16] MEDS ORDERED: Z GUARD REMEDY 4 OZ OINT TP PRN (17:30)
[2022-10-16] MEDS ORDERED: MAG HYDROX/AL HYDROX/SIMETH 30 ML UDC PO PRN (17:30)
[2022-10-16] MEDS ORDERED: ZOLPIDEM TARTRATE 5 MG TABLET PO PRN (17:30)
[2022-10-16] MEDS ORDERED: BISACODYL SUPP (10 MG) 10 MG/SUPP.RECT SUPP.RECT RC PRN (17:30)
--- NOTE | 2022-10-16 17:52 | NUR ---
edwin brownlee sent to lab
[2022-10-16 18:08] LABS: ALANINE AMINOTRANSFERASE < 6 U/L (12-78); ALBUMIN 3.6 g/dL (3.4-5.0); ALKALINE PHOSPHATASE 46 U/L (46-116); ASPARTATE AMINOTRANSFERASE 15 U/L (15-37); BILIRUBIN,DIRECT 0.1 mg/dL (0.0-0.2); BILIRUBIN,TOTAL 0.5 mg/dL (0.2-1.0); CALCIUM, SERUM 9.9 mg/dL (8.5-10.1); CARBON DIOXIDE 25 mmol/L (21-32); CHLORIDE 101 mmol/L (98-107); CREATININE 0.8 mg/dL (0.6-1.3); GLUCOSE 77 mg/dL (74-106); LIPASE 80 U/L (73-393); SODIUM SERUM 134 mmol/L (136-145); TOTAL PROTEIN, SERUM 7.3 g/dL (6.4-8.2); UREA NITROGEN, BLOOD 13 mg/dL (7-18)
--- NOTE | 2022-10-16 18:30 | NUR ---
UA SENT TO LAB CLEAR YELLOW COLOR
[2022-10-16 18:45] LABS: BILIRUBIN,URINE NEGATIVE (NEGATIVE); COLOR,URINE YELLOW (YELLOW); LEUKOCYTE ESTERASE ,URINE TRACE (NEGATIVE); NITRITE, URINE POSITIVE (NEGATIVE); PROTEIN,URINE NEGATIVE (NEGATIVE); UGLUCOSE NEGATIVE (NEGATIVE); UROBILINOGEN,URINE 0.2 EU/dL (0.2)
[2022-10-16 18:57] LABS: BACTERIA,URINE 2+ /HPF (None Seen); SQUAMOUS EPITHELIAL CELL,UR Few /HPF (None Seen)
--- NOTE | 2022-10-16 19:36 | NUR ---
HAND OFF VERPNIC RN
--- NOTE | 2022-10-16 19:45 | NUR ---
PT ATE FULL MEAL, NEEDS MET
--- NOTE | 2022-10-16 20:53 | NUR ---
REPORT GIVEN TO KATHRIN MATOS FOR REY
[2022-10-16] MEDS: LITHIUM CARBONATE 150 MG CAPSULE PO SCH (21:00)
[2022-10-16] MEDS: QUETIAPINE FUMARATE 100 MG TABLET PO SCH (21:00)
[2022-10-16 21:16] VITALS: BP 96/66
--- NOTE | 2022-10-16 21:16 | NUR ---
MS RN ADMITTING NOTES PT ARRIVED TO UNIT VIA GURNEY BY ER STAFF @ 2115. PT A/O X 0-1, CONFUSED, FORGETFUL, AGITATED. ORIENTED TO DATE ONLY. VS: 96/64 BP, 86 HR, 18RR, 97.6 F, 97%, 106.7 LBS. PT ASKED ADMISSION QUESTIONS, UNABLE TO PROVIDE CONCRETE ANSWERS DUE TO CONDITION/MENTAL STATUS. NPO STATUS IMPLEMENTED ORDERED. SEIZURE PRECAUTIONS PERFORMED: PADDED RAILS, SUCTION EQUIPMENT SETUP. STABLE ON RA WITH NO S/S OF RESPIRATORY DISTRESS. DENIES PAIN AT THIS TIME. NO VISIBLE SIGNS OF DISTRESS. SKIN ASSESSMENT PERFORMED, INTACT. DRYNESS ON B/L FEET DOCUMENTED. IV ACCESS RAC #20G PULLED OUT BY PATIENT. PT WAS AGITATED AND CONFUSED, TRIED TO GET OUT OF BED AND NON-COMPLIANT WITH ORDERS. MADE AWARE. B/L RESTRAINTS AND ATIVAN 1MG Q6 PRN IM/IV ORDERED. CIRCULATION TO WRIST CHECKED, NO ISSUES. WILL CONTINUE TO MONITOR AND ASSESS NEED FOR RESTRAINTS. NEW IV ACCESS INSERTED ONCE PT CALMED DOWN, RFA #22G FLUSHING WELL AND INTACT, STARTED ON D5 1/2 NS @ 100 ML/HR PER ORDERS. PT ORIENTED TO UNIT AND HOW TO USE CALL LIGHT. PT UNABLE TO RETURN DEMONSTRATION. NO BELONGINGS NOTED. SAFETY PRECAUTIONS IMPLEMENTED: BED LOCKED AND IN LOWEST POSITION, PADDED SIDERAILS UP X3, BED ALARM ON, CALL LIGHT WITHIN REACH. WILL CONTINUE TO MONITOR AND ASSIST.
[2022-10-16] MEDS: LORAZEPAM INJ 2 MG/ML VIAL IM/IV PRN (23:28)
--- NOTE | 2022-10-16 23:28 | NUR ---
RN NOTES ATIVAN PRN FOR PT WAS NOT GIVEN DUE TO PT BEING CALM AT THE MOMENT. WASTED DOSE IN OMNICELL.
--- NOTE | 2022-10-17 00:10 | NUR ---
RN NOTES PT REMAINED CALM DURING AND AFTER IV ACCESS INSERTION. RESTRAINTS ON RIGHT WRIST REMOVED AT THE MOMENT. WILL REASSESS NEED FOR RESTRAINTS.
--- NOTE | 2022-10-17 07:05 | NUR ---
MS RN OPENING NOTES RECEIVED PATIENT AWAKE IN BED, A/Ox1 WITH EPISODES OF CONFUSION AND FORGETFULNESS. ON ROOM AIR, NO S/S OF RESPIRATORY DISTRESS. IV ACCESS RFA #22G RUNNING D5 1/2NS @100ML/HR. INTACT AND PATENT. NO S/S OF INFILTRATION. PATIENT HAS BILATERAL SOFT WRIST RESTRAINTS, CIRCULATION WNL AND SKIN INTACT. PATIENT IS BEDBOUND, INCONTINENT USES DIAPER. SKIN ISSUES: BILATERAL FOOT DRYNESS. SAFETY MEASURES IN PLACE: BED LOCKED AND IN LOWEST POSITION, CALL LIGHT WITHIN REACH, SIDE RAILS UPx3, BED ALARM ON, HOB ELEVATED. WILL CONTINUE TO MONITOR.
[2022-10-17] MEDS: LEVOTHYROXINE SODIUM 25 MCG TABLET PO SCH (07:30)
--- NOTE | 2022-10-17 07:30 | NUR ---
MS RN CLOSING NOTES PT RESTING IN BED, AWAKE AT THIS TIME. PT A/O X 0-1, CONFUSED. HAD PERIODS OF AGITATION AND BEING COMBATIVE DURING SHIFT. STABLE ON RA WITH NO S/S OF RESPIRATORY DISTRESS. DENIES PAIN AT THIS TIME. NO VISIBLE SIGNS OF DISTRESS. IV ACCESS RFA #22G FLUSHING WELL AND INTACT, RUNNING D5 1/2 NS @ 100 ML/HR. B/L WRIST RESTRAINTS IN PLACE. CIRCULATION WNL. ALL CARE PROVIDED AND MEDS TOLERATED WELL. SAFETY PRECAUTIONS MAINTAINED: BED LOCKED AND IN LOWEST POSITION, PADDED SIDERAILS UP X3, BED ALARM ON, CALL LIGHT WITHIN REACH. WILL ENDORSE REY TO DAY SHIFT NURSE..
[2022-10-17 08:01] VITALS: BP 112/70
[2022-10-17] MEDS: ASCORBIC ACID 500 MG TABLET PO SCH (09:29)
[2022-10-17] MEDS: LITHIUM CARBONATE 150 MG CAPSULE PO SCH ×2 (09:29→21:05)
[2022-10-17] MEDS: DOCUSATE SODIUM 100 MG CAPSULE PO SCH (09:29)
[2022-10-17] MEDS: MULTIVIT W/MINERALS 1 TAB TABLET PO SCH (09:29)
[2022-10-17] MEDS: LEVETIRACETAM (250 MG) 250 MG TABLET PO SCH ×2 (09:29→21:05)
[2022-10-17] MEDS: QUETIAPINE FUMARATE 100 MG TABLET PO SCH ×2 (09:29→21:05)
[2022-10-17 09:55] LABS: BASOPHILS % (AUTO) 0.6 % (0.0-2.0); EOSINOPHILS % (AUTO) 2.4 % (0.0-6.0); HEMATOCRIT 34 % (33-45); HEMOGLOBIN 11.1 g/dL (11.5-14.8); LYMPHOCYTES # (AUTO) 2.4 K/uL (0.8-4.8); LYMPHOCYTES % (AUTO) 43.1 % (20.0-44.0); MEAN CORPUSCULAR HGB CONC 33 g/dl (31.0-36.0); MEAN CORPUSCULAR VOLUME 94 fL (82-100); MONOCYTES # (AUTO) 0.5 K/uL (0.1-1.30); MONOCYTES % (AUTO) 8.3 % (2.0-12.0); NEUTROPHILS # (AUTO) 2.5 K/uL (1.8-8.9); NEUTROPHILS % (AUTO) 45.6 % (43.0-81.0); PLATELET COUNT (AUTO) 324 K/uL (150-450); RED BLOOD CELL COUNT(AUTO) 3.61 MIL/uL (4.0-5.2); WHITE BLOOD COUNT (AUTO) 5.6 K/uL (4.3-11.0)
[2022-10-17 10:05] LABS: CALCIUM, SERUM 9.2 mg/dL (8.5-10.1); CREATININE 0.7 mg/dL (0.6-1.3); MAGNESIUM 1.4 mg/dL (1.8-2.4); PHOSPHORUS 3.3 mg/dL (2.5-4.9); POTASSIUM 3.3 mmol/L (3.5-5.1)
[2022-10-17] MEDS: IV D5/0.45 NACL 1,000 ML IV PRN (13:01)
[2022-10-17] MEDS: CEFTRIAXONE 1 G in IV D5W 50 ML IV SCH (15:48)
[2022-10-17 15:58] VITALS: BP 106/74
--- NOTE | 2022-10-17 18:58 | NUR ---
MS RN CLOSING NOTES PATIENT AWAKE IN BED, A/Ox1 WITH EPISODES OF CONFUSION AND FORGETFULNESS. STABLE ON ROOM AIR, NO S/S OF RESPIRATORY DISTRESS. IV ACCESS RFA #22G RUNNING D5 1/2NS @100ML/HR. INTACT AND PATENT. NO S/S OF INFILTRATION. PATIENT HAS BILATERAL SOFT WRIST RESTRAINTS, CIRCULATION WNL AND SKIN INTACT. RELEASED WHEN PATIENT IS EATING. PATIENT IS BEDBOUND, INCONTINENT USES DIAPER. SKIN ISSUES: BILATERAL FOOT DRYNESS. SAFETY MEASURES MAINTAINED: BED LOCKED AND IN LOWEST POSITION, CALL LIGHT WITHIN REACH, SIDE RAILS UPx3, BED ALARM ON, HOB ELEVATED. WILL ENDORSE TO NEXT SHIFT ANY REY.
--- NOTE | 2022-10-17 19:30 | NUR ---
MS RN OPENING NOTE PATIENT AWAKE IN BED, A/Ox1 WITH EPISODES OF CONFUSION AND FORGETFULNESS. PT STABLE ON ROOM AIR. NO SOB OR S/S OF RESPIRATORY DISTRESS. IV ACCESS RFA #22G RUNNING D5 1/2NS @100ML/HR, INTACT AND PATENT. WITH BILATERAL SOFT WRIST RESTRAINTS, CIRCULATION WNL. SAFETY PRECAUTIONS IN PLACE. BED IN LOWEST LOCKED POSITION, HOB ELEVATED, SIDE RAILS UP X3, AND CALL LIGHT AND TABLE WITHIN REACH. ALL NEEDS MET AT THIS TIME.
[2022-10-17 20:21] VITALS: BP 97/66
--- NOTE | 2022-10-17 22:04 | NUR ---
RN NOTE PT NOTED WITH POTASSIUM 3.3. NO REPLACEMENT GIVEN IN AM SHIFT. INFORMED DR SHAVER WITH NEW ORDER FOR KCL 40 MEQ PO ONCE. ORDER NOTED AND CARRIED OUT.
[2022-10-17] MEDS ORDERED: POTASSIUM CHLORIDE 20 MEQ TAB.PRT.SR PO ONE (22:30)
--- NOTE | 2022-10-18 06:37 | NUR ---
MS RN CLOSING NOTE PATIENT AWAKE IN BED, A/Ox1 WITH EPISODES OF CONFUSION AND FORGETFULNESS. PT STABLE ON ROOM AIR. NO SOB OR S/S OF RESPIRATORY DISTRESS. IV ACCESS RFA #22G RUNNING D5 1/2NS @100ML/HR, INTACT AND PATENT. WITH BILATERAL SOFT WRIST RESTRAINTS, CIRCULATION WNL. ALL DUE MEDS GIVEN ORDERED. TURNED AND REPOSITION Q2H. SAFETY PRECAUTIONS IN PLACE AT ALL TIMES. BED IN LOWEST LOCKED POSITION, HOB ELEVATED, SIDE RAILS UP X3, AND CALL LIGHT AND TABLE WITHIN REACH. ALL NEEDS MET AT THIS TIME AND WILL ENDORSE TO ONCOMING NURSE FOR REY.
--- NOTE | 2022-10-18 07:12 | NUR ---
MS RN OPENING NOTES RECEIVED PATIENT SLEEPING IN BED, A/Ox1 WITH EPISODES OF CONFUSION AND FORGETFULNESS. ON ROOM AIR, NO S/S OF RESPIRATORY DISTRESS. IV ACCESS RFA #22G RUNNING D5 1/2NS @100ML/HR. INTACT AND PATENT. NO S/S OF INFILTRATION. PATIENT HAS BILATERAL SOFT WRIST RESTRAINTS, CIRCULATION WNL AND SKIN INTACT. PATIENT IS BEDBOUND, INCONTINENT USES DIAPER. SKIN ISSUES: BILATERAL FOOT DRYNESS. SAFETY MEASURES IN PLACE: BED LOCKED AND IN LOWEST POSITION, CALL LIGHT WITHIN REACH, SIDE RAILS UPx3, BED ALARM ON, HOB ELEVATED. WILL CONTINUE TO MONITOR.
[2022-10-18] MEDS: LEVOTHYROXINE SODIUM 25 MCG TABLET PO SCH (08:08)
[2022-10-18] MEDS: MULTIVIT W/MINERALS 1 TAB TABLET PO SCH (08:08)
[2022-10-18] MEDS: LITHIUM CARBONATE 150 MG CAPSULE PO SCH (08:09)
[2022-10-18] MEDS: QUETIAPINE FUMARATE 100 MG TABLET PO SCH ×5 (08:09→20:58)
[2022-10-18] MEDS: ASCORBIC ACID 500 MG TABLET PO SCH (08:09)
[2022-10-18] MEDS: LEVETIRACETAM (250 MG) 250 MG TABLET PO SCH ×2 (08:09→20:58)
[2022-10-18] MEDS: DOCUSATE SODIUM 100 MG CAPSULE PO SCH (08:09)
[2022-10-18 08:36] VITALS: BP 110/68
[2022-10-18 09:23] LABS: BASOPHILS % (AUTO) 0.5 % (0.0-2.0); EOSINOPHILS % (AUTO) 2.2 % (0.0-6.0); HEMATOCRIT 37 % (33-45); HEMOGLOBIN 11.8 g/dL (11.5-14.8); LYMPHOCYTES # (AUTO) 2.5 K/uL (0.8-4.8); LYMPHOCYTES % (AUTO) 49.8 % (20.0-44.0); MEAN CORPUSCULAR HGB CONC 32 g/dl (31.0-36.0); MEAN CORPUSCULAR VOLUME 93 fL (82-100); MONOCYTES # (AUTO) 0.4 K/uL (0.1-1.30); MONOCYTES % (AUTO) 7.1 % (2.0-12.0); NEUTROPHILS % (AUTO) 40.4 % (43.0-81.0); PLATELET COUNT (AUTO) 331 K/uL (150-450); RED BLOOD CELL COUNT(AUTO) 3.95 MIL/uL (4.0-5.2)
[2022-10-18 09:35] LABS: CALCIUM, SERUM 9.4 mg/dL (8.5-10.1); CREATININE 0.8 mg/dL (0.6-1.3); POTASSIUM 4.3 mmol/L (3.5-5.1)
[2022-10-18] MEDS: ENSURE ENLIVE 237 ML LIQUID (VANILLA) PO SCH ×2 (12:40→17:28)
[2022-10-18] MEDS: CEFTRIAXONE 1 G in IV D5W 50 ML IV SCH (14:51)
--- NOTE | 2022-10-18 15:40 | NUR ---
RN NOTES PATIENT COMPLAINED OF PAIN, PRN TYLENOL ADMINISTERED. PATIENT NOW SLEEPING IN BED.
[2022-10-18 16:19] VITALS: BP 103/68
--- NOTE | 2022-10-18 18:37 | NUR ---
MS RN CLOSING NOTES PATIENT RESTING IN BED, A/Ox1 WITH EPISODES OF CONFUSION AND FORGETFULNESS. STABLE ON ROOM AIR, NO S/S OF RESPIRATORY DISTRESS. IV ACCESS RFA #22G RUNNING D5 1/2NS @100ML/HR. INTACT AND PATENT. NO S/S OF INFILTRATION. PATIENT HAS BILATERAL SOFT WRIST RESTRAINTS, CIRCULATION WNL AND SKIN INTACT. RELEASED WHEN PATIENT IS EATING. PATIENT IS BEDBOUND, INCONTINENT USES DIAPER. SKIN ISSUES: BILATERAL FOOT DRYNESS. SAFETY MEASURES MAINTAINED: BED LOCKED AND IN LOWEST POSITION, CALL LIGHT WITHIN REACH, SIDE RAILS UPx3, BED ALARM ON, HOB ELEVATED. WILL ENDORSE TO NEXT SHIFT ANY REY.
--- NOTE | 2022-10-18 19:35 | NUR ---
MS RN OPENING NOTES PATIENT RESTING IN BED, A/Ox1 WITH EPISODES OF CONFUSION AND FORGETFULNESS. STABLE ON ROOM AIR, NO S/S OF RESPIRATORY DISTRESS. IV ACCESS RFA #22G RUNNING D5 1/2NS @100ML/HR. INTACT AND PATENT. NO S/S OF INFILTRATION. PATIENT HAS BILATERAL SOFT WRIST RESTRAINTS, CIRCULATION WNL AND SKIN INTACT. RELEASED WHEN PATIENT IS EATING. SKIN ISSUES: BILATERAL FOOT DRYNESS. SAFETY MEASURES MAINTAINED: BED LOCKED AND IN LOWEST POSITION, CALL LIGHT WITHIN REACH, SIDE RAILS UPx3, BED ALARM ON, HOB ELEVATED.
[2022-10-18 21:42] VITALS: BP 115/69
[2022-10-18] MEDS ORDERED: MIRTAZAPINE 15 MG TABLET PO SCH (22:00)
[2022-10-19] MEDS: IV D5/0.45 NACL 1,000 ML IV PRN (05:11)
--- NOTE | 2022-10-19 07:20 | NUR ---
MS RN OPENING NOTE RECEIVED PATIENT IN BED ASLEEP. PATIENT IS A/Ox1, ABLE TO MAKE NEEDS KNOWN. STABLE ON ROOM AIR, WITH NO S/S OF RESPIRATORY DISTRESS. WITH IV ACCESS RFA #22G RUNNING 1/2NS @100ML/HR, INFUSING WELL. PATIENT HAS BILATERAL SOFT WRIST RESTRAINTS, CIRCULATION WNL AND SKIN INTACT, NO MOTOR DEFICIT NOTED. SAFETY MEASURES MAINTAINED: BED LOCKED AND IN LOWEST POSITION, CALL LIGHT WITHIN REACH, SIDE RAILS UPx3, BED ALARM ON, HOB ELEVATED. WILL CONTINUE WITH PLAN OF CARE.
[2022-10-19 08:00] VITALS: BP 127/75
[2022-10-19] MEDS: MULTIVIT W/MINERALS 1 TAB TABLET PO SCH (08:13)
[2022-10-19] MEDS: QUETIAPINE FUMARATE 100 MG TABLET PO SCH ×3 (08:13→16:41)
[2022-10-19] MEDS: DOCUSATE SODIUM 100 MG CAPSULE PO SCH (08:14)
[2022-10-19] MEDS: LEVETIRACETAM (250 MG) 250 MG TABLET PO SCH (08:14)
[2022-10-19] MEDS: LEVOTHYROXINE SODIUM 25 MCG TABLET PO SCH (08:14)
[2022-10-19] MEDS: ENSURE ENLIVE 237 ML LIQUID (VANILLA) PO SCH ×3 (08:15→16:41)
[2022-10-19] MEDS: ASCORBIC ACID 500 MG TABLET PO SCH (08:15)
--- NOTE | 2022-10-19 13:00 | NUR ---
MS RN NOTE SEEN BY HOSPITALIST WILMER. IN STABLE CONDITION. WITH ORDER TO DISCHARGE PATIENT. HEALTH TEACHING DONE, PATIENT WITH DEMENTIA AND VERY FORGETFUL. IN STABLE CONDITION.
[2022-10-19] MEDS ORDERED: Quetiapine Fumarate PO (14:44)
[2022-10-19] MEDS ORDERED: LACT-246 PO (14:44)
[2022-10-19] MEDS ORDERED: Multivit W/Minerals PO (14:44)
[2022-10-19] MEDS ORDERED: CEPH500C2 PO (14:44)
[2022-10-19] MEDS ORDERED: MIRT-121 PO (14:44)
[2022-10-19] MEDS: CEFTRIAXONE 1 G in IV D5W 50 ML IV SCH (15:27)
[2022-10-19 16:00] VITALS: BP 110/69
[2022-10-19] MEDS: LORAZEPAM INJ 2 MG/ML VIAL IM/IV PRN (17:18)
--- NOTE | 2022-10-19 17:30 | NUR ---
MS RN NOTE PATIENT DISCHARGED ORDERED, IN STABLE CONDITION. PATIENT IV ACCESS REMOVED AND COVERED WITH DRY DRESSING, TOLERATED WELL. PICKED UP BY EMT ON A GURNEY, IN STABLE CONDITION. PATIENT ENDORSED TO JT MATOS OF [facility].
== END 2022-10-19 18:05 | DRG 640 ==
LOC: ER 15:37 → MED 20:57
PROVIDERS: ADMIT Nurse Practitioner Acute Care; ATTEND Nurse Practitioner Acute Care
DX: E86.0 Dehydration (principal); G93.41 Metabolic encephalopathy; E44.0 Moderate protein-calorie malnutrition; Z68.1 Body mass index [BMI] 19.9 or less, adult; R64 Cachexia; J44.0 Chronic obstructive pulmonary disease with (acute) lower respiratory infection; N39.0 Urinary tract infection, site not specified; F03.918 Unspecified dementia, unspecified severity, with other behavioral disturbance; R62.7 Adult failure to thrive; E03.9 Hypothyroidism, unspecified; G40.909 Epilepsy, unspecified, not intractable, without status epilepticus; R13.10 Dysphagia, unspecified; I10 Essential (primary) hypertension; F31.9 Bipolar disorder, unspecified; I25.10 Atherosclerotic heart disease of native coronary artery without angina pectoris; Z87.891 Personal history of nicotine dependence; F29 Unspecified psychosis not due to a substance or known physiological condition; Z20.822 Contact with and (suspected) exposure to COVID-19; F20.9 Schizophrenia, unspecified
CPT/HCPCS: 36415; 71045-TC; 80048-TC; 80076-TC; 81001; 83690-TC; 83735-TC; 84100-TC; 84484-TC; 85025-TC; 87081-TC; 92526; 92611-TC; C9803; G0378; J0696; J2060; J3490; J7060

== ENCOUNTER 2023-02-26 20:55 | Inpatient (IN) | payer MEDICARE, OTHER ==
[~2023-02-26] VITALS: Ht 165.1 cm; Wt 44.9 kg
[~2023-02-26 20:55] MED LIST changes: +ASCO-340 PO; +CEPH500C2 PO; +LACT-246 PO; -LITH150C PO; +MIRT-121 PO; -MULT-447 PO; +Multivit W/Minerals PO; -NUT.237L30 GT; -QUET100T PO; +Quetiapine Fumarate PO; -RISP0.2515 GT
--- NOTE | 2023-02-26 21:10 | NUR ---
BIB AMBULIFE UNIT 711 FROM [facility], PT FOR GTUBE PLACEMENT D/T FAILURE TO THRIVE. PLACED IN BED, AWAKE- RESPONDING TO VERBAL STIMULI, BREATHING EVEDN AND UNLABORED SATURATING AT 98%RA.
--- NOTE | 2023-02-26 21:21 | NUR ---
COVID SWAB DONE AND SENT TO LAB
[2023-02-26] MEDS ORDERED: IV NS 0.9% 1,000 ML BAG IV ONE ×2 (21:30→23:00)
--- NOTE | 2023-02-26 21:35 | NUR ---
DEVELOPMENTAL EDUCATION INSTRUCTOR AT BEDSIDE
[2023-02-26] MEDS ORDERED: PIPERACI/TAZO 3.375GM/D5W 50ML PB IV ONE (21:53)
[2023-02-26] MEDS ORDERED: PIPERACILLIN /TAZOBACTAM 3.375 G in IV D5W 50 ML IV ONE (22:00)
--- NOTE | 2023-02-26 22:02 | NUR ---
XR AT BEDSIDE
[2023-02-26 22:08] LABS: BASOPHILS % (AUTO) 0.2 % (0.0-2.0); EOSINOPHILS % (AUTO) 0.1 % (0.0-6.0); HEMATOCRIT 41 % (33-45); HEMOGLOBIN 13.4 g/dL (11.5-14.8); LYMPHOCYTES # (AUTO) 2.9 K/uL (0.8-4.8); MEAN CORPUSCULAR HGB CONC 33 g/dl (31.0-36.0); MEAN CORPUSCULAR VOLUME 96 fL (82-100); MONOCYTES # (AUTO) 0.3 K/uL (0.1-1.30); MONOCYTES % (AUTO) 6.4 % (2.0-12.0); NEUTROPHILS # (AUTO) 1.9 K/uL (1.8-8.9); NEUTROPHILS % (AUTO) 37.3 % (43.0-81.0); PLATELET COUNT (AUTO) 283 K/uL (150-450); WHITE BLOOD COUNT (AUTO) 5.1 K/uL (4.3-11.0)
[2023-02-26 22:16] LABS: CALCIUM, SERUM 9.7 mg/dL (8.5-10.1); CARBON DIOXIDE 25 mmol/L (21-32); CHLORIDE 108 mmol/L (98-107); CREATININE 1.1 mg/dL (0.6-1.3); GLUCOSE 129 mg/dL (74-106); POTASSIUM 4.1 mmol/L (3.5-5.1); SODIUM SERUM 143 mmol/L (136-145); UREA NITROGEN, BLOOD 35 mg/dL (7-18)
[2023-02-26 22:31] LABS: ALANINE AMINOTRANSFERASE 15 U/L (12-78); ALBUMIN 3.4 g/dL (3.4-5.0); ALKALINE PHOSPHATASE 53 U/L (46-116); ASPARTATE AMINOTRANSFERASE 17 U/L (15-37); BILIRUBIN,DIRECT 0.3 mg/dL (0.0-0.2); BILIRUBIN,TOTAL 1.3 mg/dL (0.2-1.0)
--- NOTE | 2023-02-26 22:42 | NUR ---
SCALLOP BINDER WILMER VELÁSQUEZ AT BEDSIDE
[2023-02-26] MEDS ORDERED: ONDANSETRON HCL/PF 4 MG/2 ML VIAL IVP PRN (23:00)
[2023-02-26] MEDS ORDERED: DEXTROSE 50%-WATER 50 ML DISP.SYRIN IV PRN (23:00)
[2023-02-26] MEDS ORDERED: Z GUARD REMEDY 4 OZ OINT TP PRN (23:00)
[2023-02-26] MEDS ORDERED: MAG HYDROX/AL HYDROX/SIMETH 30 ML UDC PO PRN (23:00)
[2023-02-26] MEDS ORDERED: ZOLPIDEM TARTRATE 5 MG TABLET PO PRN (23:00)
[2023-02-26] MEDS ORDERED: ACETAMINOPHEN 325 MG TABLET PO PRN (23:00)
[2023-02-26] MEDS ORDERED: BISACODYL SUPP (10 MG) 10 MG/SUPP.RECT SUPP.RECT RC PRN (23:00)
[2023-02-26] MEDS ORDERED: MAGNESIUM HYDROXIDE 30 ML UDC PO PRN ×2 (23:00)
--- NOTE | 2023-02-26 23:32 | NUR ---
URINE COLLECTED AND SENT TO LAB
[2023-02-27] MEDS: IV NS 0.9% 1,000 ML IV PRN ×3 (00:29→18:14)
--- NOTE | 2023-02-27 00:30 | NUR ---
MS CHRONOGRAPH OPERATOR NOTE RECEIVED PT FROM ER VIA [facility] WITH THE ADMITTING DX OF FAILURE TO THRIVE. PT WAS AWAKE, A/O X 1-2, WAS ABLE TO SAY HER NAME, WHERE SHE WAS AND THE MONTH AND DAY OF HER BIRTHDAY. ON RA, TOLERATING WELL, O2 SAT @ 100%. NO S/SX OF ACUTE RESPI DISTRESS NOTED AT THIS TIME. NO SOB, BREATHING IS EVEN AND UNLABORED. PT DENIES ANY PAIN. IV ACCESS ON LFA #22g, PATENT, INTACT AND FLUSHING WELL. INFUSING NS @ 120 CC/HR. SKIN IS INTACT UPON ASSESSMENT. PT IS NPO, SWALLOW EVAL TEST THIS AM. ALL SAFETY MEASURES IN PLACE: BED LOCKED IN LOW POSITION, BED ALARM ON, SR UP X 3, CALL LIGHT WITHIN REACH. WILL CONTINUE TO MONITOR.
--- NOTE | 2023-02-27 01:11 | NUR ---
PT TRANSFERRING TO [facility] VIA HOSPITAL PROTOCOL.
[2023-02-27 04:00] VITALS: BP 80/53
--- NOTE | 2023-02-27 05:27 | NUR ---
RN NOTE PT SBP DROPPED TO 80s. PT IS ASYMPTOMATIC, ALERT AND VERBALLY RESPONSIVE. INFORMED HEALTH AND SAFETY COORDINATOR WILMER AND ORDERED A BOLUS OF NS 500 CC. ALSO SWITCHED PT TO TELE TO BE ABLE TO MONITOR HER MORE CLOSELY. ALL ORDERS CARRIED OUT.
[2023-02-27 05:29] LABS: BILIRUBIN,URINE NEGATIVE (NEGATIVE); COLOR,URINE YELLOW (YELLOW); LEUKOCYTE ESTERASE ,URINE NEGATIVE (NEGATIVE); NITRITE, URINE NEGATIVE (NEGATIVE); PH,URINE 5.5 (5.0-8.0); PROTEIN,URINE TRACE mg/dl (NEGATIVE); UGLUCOSE TRACE mg/dL (NEGATIVE); UROBILINOGEN,URINE 0.2 EU/dL (0.2)
[2023-02-27] MEDS ORDERED: IV NS 0.9% 500 ML IV ONE (05:30)
--- NOTE | 2023-02-27 06:19 | NUR ---
VALUE STREAM MANAGER CLOSING NOTE NO SIGNIFICANT CHANGE T/O THE NIGHT. VS STABLE EXCEPT FOR SBP WHICH DIPPED TO 80s. 500 CC OF NS BOLUS GIVEN ORDERED. ALL NEEDS MET. KEPT PT CLEAN AND DRY. TURNED AND REPOSITIONED. WILL ENDORSE TO AM SHIFT NURSE FOR REY.
--- NOTE | 2023-02-27 07:27 | NUR ---
DESIGN SPECIALIST OPENING NOTE RECEIVED PATIENT IN BED SLEEPING, EASILY AWAKEN. A/O X 1-2, WAS ABLE TO SAY HER NAME, WHERE SHE WAS AND THE MONTH AND DAY OF HER BIRTHDAY. ON RA, TOLERATING WELL, NO S/SX OF ACUTE RESPI DISTRESS NOTED AT THIS TIME. NO SOB, BREATHING IS EVEN AND UNLABORED. PT DENIES ANY PAIN. IV ACCESS ON LFA #22g, PATENT, INTACT AND FLUSHING WELL. INFUSING NS @ 120 CC/HR. PT IS NPO. SAFETY MEASURES IN PLACED. CALL LIGHT WITHIN REACH. PLAN OF CARE CONTINUE.
[2023-02-27] MEDS: BLOOD SUGAR DIAGNOSTIC 1 EACH STRIP IN SCH ×4 (07:30→20:57)
[2023-02-27] MEDS: LEVOTHYROXINE SODIUM 75 MCG TABLET PO SCH (07:30)
--- NOTE | 2023-02-27 07:48 | NUR ---
PATIENT REFUSED SUGAR CHECK, PATIENT STARTED YELLING STATING "NO, LEAVE ME ALONE', EXPLAINED THE IMPORTANCE OF CHECKING THE BLOOD SUGAR X3, PATIENT STILL REFUSED X3. WILL INFORMED .
[2023-02-27] MEDS: ENSURE ENLIVE 237 ML LIQUID (VANILLA) PO SCH ×3 (08:00→16:17)
[2023-02-27 09:00] VITALS: BP 90/52
[2023-02-27] MEDS: MULTIVIT W/MINERALS 1 TAB TABLET PO SCH ×2 (09:00→09:50)
[2023-02-27] MEDS: LEVETIRACETAM (250 MG) 250 MG TABLET PO SCH ×3 (09:00→21:00)
[2023-02-27] MEDS: DOCUSATE SODIUM LIQ 100 MG/10 ML UDC PO SCH ×2 (09:00→10:12)
[2023-02-27] MEDS: QUETIAPINE FUMARATE 25 MG TABLET PO SCH ×5 (09:00→21:00)
[2023-02-27] MEDS: ASCORBIC ACID 500 MG TABLET PO SCH ×2 (09:00→09:50)
--- NOTE | 2023-02-27 09:00 | NUR ---
PATIENT REFUSED ALL MEDICATIONS, EXPLAINED TO THE PATIENT THE BENEFITS OF TAKING THE MEDICATIONS X3, PATIENT REFUSED X3, DR. ALDANA NOTIFIED.
[2023-02-27] MEDS ORDERED: QUET100T PO (10:44)
[2023-02-27] MEDS ORDERED: DOCU100T2 PO (10:44)
[2023-02-27] MEDS ORDERED: MULT-447 PO (10:44)
--- NOTE | 2023-02-27 12:00 | NUR ---
PATIENT REFUSED SUGAR CHECK, PATIENT STARTED YELLING STATING "NO, LEAVE ME ALONE', EXPLAINED THE IMPORTANCE OF CHECKING THE BLOOD SUGAR X3, PATIENT STILL REFUSED X3. INFORMED DR. ALDANA.
--- NOTE | 2023-02-27 12:00 | NUR ---
PATIENT REFUSED ALL MEDICATIONS, EXPLAINED TO THE PATIENT THE BENEFITS OF TAKING THE MEDICATIONS X3, PATIENT REFUSED X3.
--- NOTE | 2023-02-27 12:25 | NUR ---
INFORMED DR. ALDANA THAT PATIENT IS BEEN REFUSING CARE AND MEDICATIONS, REFUSING BLOOD DRAW,WITH NEW ORDER FOR PSYCH EVALUATION, NOTED AND CARRIED OUT, FAXED FACE SHEET TO GPS AND INFORMED DR. STAHL.
[2023-02-27 13:00] VITALS: BP 90/57
--- NOTE | 2023-02-27 16:57 | NUR ---
RECHECKED BLOOD PRESSURE MANUALLY BP IS 90/49, PATIENT DENIES ANY DIZZINESS, ON IV NS @120ML/HR, NOTIFIED NO NEW ORDERS.
[2023-02-27 17:00] VITALS: BP 90/49
--- NOTE | 2023-02-27 17:00 | NUR ---
PATIENT REFUSED SUGAR CHECK, PATIENT STARTED YELLING STATING "NO, LEAVE ME ALONE', EXPLAINED THE IMPORTANCE OF CHECKING THE BLOOD SUGAR X3, PATIENT STILL REFUSED X3. INFORMED DR. ALDANA, NO NEW ORDER.
--- NOTE | 2023-02-27 17:30 | NUR ---
PATIENT REFUSED ALL MEDICATIONS, EXPLAINED TO THE PATIENT THE BENEFITS OF TAKING THE MEDICATIONS X3, PATIENT REFUSED X3.
--- NOTE | 2023-02-27 18:28 | NUR ---
MANUFACTURING TECHNICIAN OPENING NOTE PATIENT IN BED AWAKE, A/O X 1-2, ALERT AND VERBALLY RESPONSIVE, ON RA, TOLERATING WELL, NO S/SX OF ACUTE RESPI DISTRESS NOTED AT THIS TIME. NO SOB, BREATHING IS EVEN AND UNLABORED. PT DENIES ANY PAIN. IV ACCESS ON LFA #22g, PATENT, INTACT AND FLUSHING WELL. INFUSING NS @ 90CC/HR, TOLERATING WELL. ON PUREED DIET. ON ASPIRATION PRECAUTION. SAFETY MEASURES IN PLACED. CALL LIGHT WITHIN REACH. WILL ENDORSE TO NIGHT NURSE FOR REY.
[2023-02-27 20:00] VITALS: BP 93/51
[2023-02-27] MEDS: INSULIN REGULAR, HUMAN 100 UNIT/ML 3 ML VIAL SQ PRN (20:57)
[2023-02-27] MEDS: MIRTAZAPINE 15 MG TABLET PO SCH (21:29)
--- NOTE | 2023-02-27 22:48 | NUR ---
PASSED SWALLOW Swallow eval completed on 02/27/23 and patient PASSED (see notes of Laurence Mcelroy/STEAM PIPE FITTER )Patient on Puree diet Thin liquids. Swallow Therapy 3 times a week for [address]
[2023-02-28] VITALS (7 sets, daily range): BP systolic 84–105; BP diastolic 48–60
[2023-02-28] MEDS: IV NS 0.9% 1,000 ML IV PRN ×2 (06:13→16:30)
--- NOTE | 2023-02-28 06:28 | NUR ---
END OF SHIFT REPORT Patient in bed, confused, restless at times, screams. Speech unclear. Oxygen sat 100% in RA. Sinus Alexandre in the monitor car operator, HR 52. IV LFA peripheral line intact, IVF continuous. Patient with poor appetite, refused night medication, spitted out, unable to education as patient incoherent, not follow commands. Uncooperative with care. Blood glucose stable, no insulin coverage needed during the night. Plan for Psych Consult, Psychiatric aware, awaiting consult. Fall precaution maintained. Will endorse to oncoming RN.
[2023-02-28] MEDS: LEVOTHYROXINE SODIUM 75 MCG TABLET PO SCH (07:30)
[2023-02-28] MEDS: BLOOD SUGAR DIAGNOSTIC 1 EACH STRIP IN SCH ×4 (07:57→21:58)
--- NOTE | 2023-02-28 08:05 | NUR ---
RN OPENING NOTES Patient in bed, confused, screams. Speech unclear. On RA, tolerating well. No signs of respiratory or cardiac distress noted. Sinus Alexandre in the cardiac nurse specialist, HR 56. IV LFA peripheral line intact, Plan for Psych Consult, Psychiatric aware, awaiting consult. Safety precautions implemented, Fall precaution maintained. Will continue to monitor.
[2023-02-28 08:10] LABS: BASOPHILS % (AUTO) 0.2 % (0.0-2.0); EOSINOPHILS % (AUTO) 0.3 % (0.0-6.0); HEMATOCRIT 29 % (33-45); HEMOGLOBIN 9.6 g/dL (11.5-14.8); LYMPHOCYTES # (AUTO) 3.1 K/uL (0.8-4.8); LYMPHOCYTES % (AUTO) 61.3 % (20.0-44.0); MEAN CORPUSCULAR HGB CONC 33 g/dl (31.0-36.0); MEAN CORPUSCULAR VOLUME 95 fL (82-100); MONOCYTES # (AUTO) 0.5 K/uL (0.1-1.30); MONOCYTES % (AUTO) 10.4 % (2.0-12.0); NEUTROPHILS # (AUTO) 1.4 K/uL (1.8-8.9); NEUTROPHILS % (AUTO) 27.8 % (43.0-81.0); PLATELET COUNT (AUTO) 184 K/uL (150-450); RED BLOOD CELL COUNT(AUTO) 3.07 MIL/uL (4.0-5.2)
--- NOTE | 2023-02-28 08:30 | NUR ---
RN NOTES FOR BLOOD SUGAR OF 67, PATIENT WAS GIVEN 2 APPLE SAUCE AND 1 CUP OF JUICE. HOLLIS MONITOR.
[2023-02-28] MEDS: ASCORBIC ACID 500 MG TABLET PO SCH (09:00)
[2023-02-28] MEDS: DOCUSATE SODIUM LIQ 100 MG/10 ML UDC PO SCH (09:00)
[2023-02-28] MEDS: LEVETIRACETAM (250 MG) 250 MG TABLET PO SCH ×2 (09:00→21:48)
[2023-02-28] MEDS: MULTIVIT W/MINERALS 1 TAB TABLET PO SCH (09:00)
[2023-02-28 09:22] LABS: ALBUMIN 2.5 g/dL (3.4-5.0); BILIRUBIN,TOTAL 0.8 mg/dL (0.2-1.0); CALCIUM, SERUM 8.4 mg/dL (8.5-10.1); CREATININE 0.7 mg/dL (0.6-1.3); MAGNESIUM 1.6 mg/dL (1.8-2.4); PHOSPHORUS 1.6 mg/dL (2.5-4.9); POTASSIUM 3.6 mmol/L (3.5-5.1); TOTAL PROTEIN, SERUM 5.2 g/dL (6.4-8.2)
[2023-02-28] MEDS: QUETIAPINE FUMARATE 25 MG TABLET PO SCH (09:41)
[2023-02-28] MEDS ORDERED: OLANZAPINE 10 MG VIAL IM PRN (10:30)
[2023-02-28] MEDS: OLANZAPINE ZYDIS 5 MG TAB.RAPDIS PO SCH ×2 (10:52→21:47)
[2023-02-28] MEDS: GLUCERNA SHAKE 237 ML CAN PO SCH ×2 (12:00→17:00)
[2023-02-28] MEDS ORDERED: NEUTRA PHOS 1 POWD.PACKET PO ONE (13:30)
[2023-02-28] MEDS: Magnesium 1GM/D5W 100ML PREMIX 100 ML IV SCH ×2 (14:16→15:49)
--- NOTE | 2023-02-28 15:02 | NUR ---
RN NOTES PATIENT WAS VERY AGITATED, KEPT ON SCREAMING SO LOUD, PHYSICALLY AGGRESSIVE TOO. PRN OLANZAPINE 5MG IM ADMINISTERED. WILL MONITOR.
--- NOTE | 2023-02-28 18:37 | NUR ---
rn notes PATIENT WAS NOTED TO BE VERY AGITATED, PLACED A MITTEN ON BOTH HANDS PATIENT KEEP ON PULLING OUT HER IV AND FOR PATIENT'S SAFETY. RESTRAINT WAS ORDERED BY DR. ALDANA. WILL MONITOR.
--- NOTE | 2023-02-28 19:15 | NUR ---
RN NOTE RECEIVED PT FOR CONTINUITY OF CARE. PATIENT A/OX1 IN NO S/SX OF ACUTE DISTRESS AT THIS TIME; CURRENTLY ON ROOM AIR; WITH 02 SAT >95% AT THIS TIME. WITH IV ACCESS ON L FA#22 PATENT, INTACT AND FLUSHING WELL. WITH RUNNING NS@75CC/HR. WITH BILATERAL SOFT RESTRAINTS IN PLACED, MONITORED AND ASSESSED PER PROTOCOL. WILL ENSURE SAFETY MEASURES WITHIN THE SHIFT. PATIENT BED ALARM IS ON. HEAD OF BED ELEVATED. BED IS LOCKED, IN LOWEST POSITION AND SIDE RAILS UP. CALL LIGHT WITHIN REACH OF THE PATIENT. WILL CONTINUE TO MONITOR AND REASSESS FOR ANY CHANGES AND WILL CARRY OUT ANY ONGOING AND ACTIVE MD ORDER.
--- NOTE | 2023-02-28 19:40 | NUR ---
RN CLOSING NOTES Patient in bed, confused, screams a lot. Speech unclear. On RA, tolerating well. No signs of respiratory or cardiac distress noted. SR in the panel monitor, HR 68. Inserted new IV line at LFA with NS of 75ml/hr, patent and intact. Unable to take blood sugar at 1700H as patient was refusing and was physically aggressive. Safety precautions implemented, Fall precaution maintained. Will endorsed to next nurse for REY.
[2023-02-28] MEDS ORDERED: OLANZAPINE 10 MG VIAL IM ONE (20:30)
[2023-02-28] MEDS: MIRTAZAPINE 15 MG TABLET PO SCH (21:47)
[2023-02-28] MEDS: INSULIN REGULAR, HUMAN 100 UNIT/ML 3 ML VIAL SQ PRN (21:59)
[2023-03-01] VITALS: BP 100/52
[2023-03-01 04:00] VITALS: BP 98/47
[2023-03-01] MEDS: IV NS 0.9% 1,000 ML IV PRN (04:20)
--- NOTE | 2023-03-01 06:25 | NUR ---
RN NOTE PATIENT REMAINS IN ROOM IN NO SIGNS OF RESPIRATORY DISTRESS, PATIENT STILL ON ROOM AIR; TOLERATING WELL SATURATING @ >95% SP02. SAFETY MEASURES IMPLEMENTED, BED IN LOWEST POSITION, LOCKED, SIDE RAILS UP, CALL LIGHT WITHIN REACH. ALL NEEDS AND ORDERS ADDRESSED DURING THE SHIFT. IV ACCESS MAINTAINED INTACT, SECURED AND FLUSHING WELL. ALL DUE MEDS GIVEN ORDERED & SCHEDULED; PATIENT TOLERATED WELL. PATIENT KEPT CLEAN AND COMFORTABLE WITHIN THE SHIFT. BILATERAL SOFT RESTRAINTS REMAINED SECURED AND MONITORED PER PROTOCOL. PATIENT ENDORSED TO INCOMING SHIFT RN WITH STABLE VITAL SIGN AND FOR CONTINUITY OF CARE.
[2023-03-01 07:14] LABS: BASOPHILS % (AUTO) 0.4 % (0.0-2.0); EOSINOPHILS % (AUTO) 0.6 % (0.0-6.0); HEMATOCRIT 33 % (33-45); HEMOGLOBIN 10.8 g/dL (11.5-14.8); LYMPHOCYTES # (AUTO) 2.4 K/uL (0.8-4.8); LYMPHOCYTES % (AUTO) 51.6 % (20.0-44.0); MEAN CORPUSCULAR HGB CONC 33 g/dl (31.0-36.0); MEAN CORPUSCULAR VOLUME 95 fL (82-100); MONOCYTES # (AUTO) 0.5 K/uL (0.1-1.30); MONOCYTES % (AUTO) 9.5 % (2.0-12.0); NEUTROPHILS # (AUTO) 1.8 K/uL (1.8-8.9); NEUTROPHILS % (AUTO) 37.9 % (43.0-81.0); PLATELET COUNT (AUTO) 212 K/uL (150-450); RED BLOOD CELL COUNT(AUTO) 3.46 MIL/uL (4.0-5.2); WHITE BLOOD COUNT (AUTO) 4.7 K/uL (4.3-11.0)
--- NOTE | 2023-03-01 07:15 | NUR ---
[employer] S[employer] AND HEALTH MANAGER OPEN NOTE: ALERT AND RESPONSIVE TO NAME. REORIENTED TO TIME AND PLACE. UNLABORED BREATHING SATING AT 100% AT ROOM AIR. 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 PERIPHERAL IV ON LEFT FOREARM G22 WITH NO S/S OF COMPLICATIONS. IVF OF NS 75ML/HR. BILATERAL SOFT WRIST RESTRAINTS, WITH NO SKIN BREAKDOWN, CIRCULATION IS WITHIN NORMAL. HOB ELEVATED. BILATERAL HALF SIDE RAILS UPX2. BED IN LOW POSITION, LOCKED, EXIT ALARM ON. CALL LIGHT IN REACH.
[2023-03-01 07:30] LABS: ALBUMIN 2.7 g/dL (3.4-5.0); BILIRUBIN,TOTAL 0.7 mg/dL (0.2-1.0); CALCIUM, SERUM 8.6 mg/dL (8.5-10.1); CREATININE 0.7 mg/dL (0.6-1.3); MAGNESIUM 1.6 mg/dL (1.8-2.4); PHOSPHORUS 1.3 mg/dL (2.5-4.9); POTASSIUM 3.5 mmol/L (3.5-5.1); TOTAL PROTEIN, SERUM 5.5 g/dL (6.4-8.2)
[2023-03-01] MEDS: LEVOTHYROXINE SODIUM 75 MCG TABLET PO SCH (07:59)
[2023-03-01] MEDS: BLOOD SUGAR DIAGNOSTIC 1 EACH STRIP IN SCH ×2 (07:59→12:37)
[2023-03-01 08:00] VITALS: BP 129/92
[2023-03-01] MEDS: GLUCERNA SHAKE 237 ML CAN PO SCH ×2 (08:00→12:37)
[2023-03-01] MEDS: LEVETIRACETAM (250 MG) 250 MG TABLET PO SCH (08:22)
[2023-03-01] MEDS: OLANZAPINE ZYDIS 5 MG TAB.RAPDIS PO SCH (08:22)
[2023-03-01] MEDS: DOCUSATE SODIUM LIQ 100 MG/10 ML UDC PO SCH (08:22)
[2023-03-01] MEDS: MULTIVIT W/MINERALS 1 TAB TABLET PO SCH (08:22)
[2023-03-01] MEDS: ASCORBIC ACID 500 MG TABLET PO SCH (08:22)
[2023-03-01 12:00] VITALS: BP 91/58
[2023-03-01] MEDS: INSULIN REGULAR, HUMAN 100 UNIT/ML 3 ML VIAL SQ PRN (12:41)
[2023-03-01] MEDS ORDERED: MAGNESIUM OXIDE 400 MG TABLET PO ONE (13:00)
--- NOTE | 2023-03-01 13:40 | NUR ---
SPOKE TO GUILLERMO MATOS AT [facility] REPORT GIVEN ETA 2PM [facility].
[2023-03-01] MEDS ORDERED: [UNRECOGNIZED DRUG - CODE] PO (13:48)
--- NOTE | 2023-03-01 13:52 | NUR ---
DR. JOVAN SOLIZ AMBULANCE IS 2PM FOR [facility], TO GIVE SODIUM PHOSPATE ORDER AT AT [facility].
[2023-03-01] MEDS ORDERED: Sodium Phosphate 15 MMOL in IV NS 0.9% 245 ML IV SCH (14:00)
--- NOTE | 2023-03-01 14:41 | NUR ---
SPOKE TO GUILLERMO MATOS INFORMED HER THAT SODIUM PHOSPHATE ORDER IS OK TO BE GIVEN TOMORROW PER DR. ALDANA DUE TO PATIENT IS DISCHARGING NOW AND PER GUILLERMO MATOS AVAILABLE TOMORROW UNTIL 7AM. IN ON LEFT FOREARM G22 PATENT. NO S/S OF COMPLICATIONS. AMBULANCE IS HERE REPORT GIVEN. PATIENT IS ALERT AND ORIENTED TIMES ONE. V/S BP 101/70 HR100 R 16 99% OXYGEN SATURATION AT ROOM AIR. T.98.3.
--- NOTE | 2023-03-01 14:50 | NUR ---
PATIENT DISCHARGED ORDERED VIA GURNEY ACCOMPANIED BY [facility] EMT'S. STABLE. DENIES PAIN OR DISCOMFORT.
== END 2023-03-01 15:19 | DRG 640 ==
LOC: ER 21:00 → TELE1 23:54 → MEDSG1 23:55 → TELE1 02-27 05:20
PROVIDERS: ADMIT Nurse Practitioner Acute Care
DX: R62.7 Adult failure to thrive (principal); E43 Unspecified severe protein-calorie malnutrition; G93.41 Metabolic encephalopathy; F03.93 Unspecified dementia, unspecified severity, with mood disturbance; F03.918 Unspecified dementia, unspecified severity, with other behavioral disturbance; E87.20 Acidosis, unspecified; R64 Cachexia; Z20.822 Contact with and (suspected) exposure to COVID-19; G40.909 Epilepsy, unspecified, not intractable, without status epilepticus; I10 Essential (primary) hypertension; E11.9 Type 2 diabetes mellitus without complications; E03.9 Hypothyroidism, unspecified; Z79.84 Long term (current) use of oral hypoglycemic drugs; Z79.899 Other long term (current) drug therapy; R79.89 Other specified abnormal findings of blood chemistry; I95.9 Hypotension, unspecified; R74.01 Elevation of levels of liver transaminase levels; I25.10 Atherosclerotic heart disease of native coronary artery without angina pectoris; F31.9 Bipolar disorder, unspecified; F20.9 Schizophrenia, unspecified; Z93.1 Gastrostomy status; Z91.199 Patient's noncompliance with other medical treatment and regimen due to unspecified reason; Z91.148 Patient's other noncompliance with medication regimen for other reason; E86.1 Hypovolemia; J44.9 Chronic obstructive pulmonary disease, unspecified; Z87.891 Personal history of nicotine dependence; E83.42 Hypomagnesemia; E83.39 Other disorders of phosphorus metabolism
CPT/HCPCS: 36415; 71045-TC; 80048-TC; 80053-TC; 80076-TC; 82962-TC; 83605-TC; 83735-TC; 84100-TC; 84484-TC; 85025-TC; 85730-TC; 87040-TC; 87081-TC; 87086-TC; 92526; 92611-TC; A4223; A9563; C9803; G0378; J1815; J2543; J3475; J3490; J7030; J7050; J7060

== ENCOUNTER 2023-06-13 13:53 | Inpatient (IN) | payer MEDICARE, OTHER ==
[~2023-06-13] VITALS: Ht 167.6 cm; Wt 42.2 kg
[~2023-06-13 13:53] MED LIST changes: -CEPH500C2 PO; +DOCU100T2 PO; -DOCU50LI PO; -MIRT-121 PO; +MULT-447 PO; -Multivit W/Minerals PO; +QUET100T PO; -Quetiapine Fumarate PO; +[UNRECOGNIZED DRUG - CODE] PO
[2023-06-13] MEDS ORDERED: IV NS 0.9% 1,000 ML BAG IV ONE ×2 (14:30→15:30)
[2023-06-13 14:46] LABS: BASOPHILS % (AUTO) 0.6 % (0.0-2.0); EOSINOPHILS # (AUTO) 0.2 K/uL (0.0-0.7); EOSINOPHILS % (AUTO) 3.1 % (0.0-6.0); HEMATOCRIT 33 % (33-45); HEMOGLOBIN 10.9 g/dL (11.5-14.8); LYMPHOCYTES # (AUTO) 3.1 K/uL (0.8-4.8); LYMPHOCYTES % (AUTO) 48.7 % (20.0-44.0); MEAN CORPUSCULAR HEMOGLOBIN 30 PG (26.0-33.0); MEAN CORPUSCULAR HGB CONC 33 g/dl (31.0-36.0); MEAN CORPUSCULAR VOLUME 91 fL (82-100); MONOCYTES # (AUTO) 0.5 K/uL (0.1-1.30); MONOCYTES % (AUTO) 7.9 % (2.0-12.0); NEUTROPHILS # (AUTO) 2.5 K/uL (1.8-8.9); NEUTROPHILS % (AUTO) 39.7 % (43.0-81.0); PLATELET COUNT (AUTO) 412 K/uL (150-450); RED BLOOD CELL COUNT(AUTO) 3.64 MIL/uL (4.0-5.2); RED CELL DISTRIBUTION WIDTH 12.8 % (11.5-15.0); WHITE BLOOD COUNT (AUTO) 6.3 K/uL (4.3-11.0)
[2023-06-13] MEDS ORDERED: MIRT-90 PO (14:47)
[2023-06-13] MEDS ORDERED: OLAN5TAB3 PO (14:47)
[2023-06-13 15:01] LABS: CALCIUM, SERUM 9.4 mg/dL (8.5-10.1); CARBON DIOXIDE 23 mmol/L (21-32); CHLORIDE 102 mmol/L (98-107); CREATININE 0.7 mg/dL (0.6-1.3); GLUCOSE 176 mg/dL (74-106); POTASSIUM 4.1 mmol/L (3.5-5.1); SODIUM SERUM 136 mmol/L (136-145); UREA NITROGEN, BLOOD 12 mg/dL (7-18)
[2023-06-13 15:03] LABS: SERUM AMMONIA 6 umol/L (11-32)
[2023-06-13 15:07] LABS: ALANINE AMINOTRANSFERASE 12 U/L (12-78); ALBUMIN 3.3 g/dL (3.4-5.0); ALCOHOL, BLOOD < 3 mg/dL (0-10); ALKALINE PHOSPHATASE 66 U/L (46-116); ASPARTATE AMINOTRANSFERASE 10 U/L (15-37); BILIRUBIN,DIRECT 0.1 mg/dL (0.0-0.2); BILIRUBIN,TOTAL 0.3 mg/dL (0.2-1.0); TOTAL PROTEIN, SERUM 7.3 g/dL (6.4-8.2)
[2023-06-13 15:10] LABS: ACETAMINOPHEN 0 ug/ml (10-30); SALICYLATE < 2.3 mg/dL (2.8-20.0)
[2023-06-13 15:22] LABS: LACTIC ACID 4.3 mmol/L (0.4-2.0)
[2023-06-13 15:23] LABS: INR 1.03 (0.91-1.10); PARTIAL THROMBOPLASTIN TIME 26.5 SEC (24.3-34.3); PROTHROMBIN TIME 10.8 SECS (9.2-11.1)
[2023-06-13 15:25] LABS: APPEARANCE,URINE CLOUDY (CLEAR); BILIRUBIN,URINE NEGATIVE (NEGATIVE); BLOOD, URINE TRACE-INTA Ery/uL (NEGATIVE); COLOR,URINE YELLOW (YELLOW); KETONES,URINE TRACE mg/dL (NEGATIVE); LEUKOCYTE ESTERASE ,URINE 1+ (NEGATIVE); NITRITE, URINE NEGATIVE (NEGATIVE); PROTEIN,URINE NEGATIVE (NEGATIVE); UGLUCOSE NEGATIVE (NEGATIVE)
[2023-06-13] MEDS ORDERED: VANCOMYCIN 1 GM in IV D5W 250 ML IV ONE (15:30)
[2023-06-13] MEDS ORDERED: CEFTRIAXONE 1GM BAG (ER ONLY) 50 ML IV ONE ×2 (15:30→15:34)
[2023-06-13] MEDS ORDERED: VANCOMYCIN 1 GM /D5W 250 ML PB IV ONE (15:34)
[2023-06-13 15:50] LABS: THYROID STIMULATING HORMONE 3.275 uIU/mL (0.358-3.74)
[2023-06-13 15:59] LABS: ADD URINE CULTURE YES; BACTERIA,URINE 1+ /HPF (None Seen); SQUAMOUS EPITHELIAL CELL,UR 0-2 /HPF (None Seen)
[2023-06-13 16:00] LABS: URINE AMORPHOUS URATE Moderate /HPF (None Seen)
[2023-06-13] MEDS ORDERED: MAGNESIUM HYDROXIDE 30 ML UDC PO PRN ×2 (16:00)
[2023-06-13] MEDS ORDERED: Z GUARD REMEDY 4 OZ OINT TP PRN (16:00)
[2023-06-13] MEDS ORDERED: MAG HYDROX/AL HYDROX/SIMETH 30 ML UDC PO PRN (16:00)
[2023-06-13] MEDS ORDERED: BISACODYL SUPP (10 MG) 10 MG/SUPP.RECT SUPP.RECT RC PRN (16:00)
[2023-06-13] MEDS ORDERED: ACETAMINOPHEN 325 MG TABLET PO PRN (16:00)
[2023-06-13] MEDS ORDERED: ONDANSETRON HCL/PF 4 MG/2 ML VIAL IVP PRN (16:00)
[2023-06-13] MEDS ORDERED: IBUPROFEN 400 MG TABLET PO PRN (16:00)
[2023-06-13] MEDS ORDERED: DEXTROSE 50%-WATER 50 ML DISP.SYRIN IV PRN (16:00)
[2023-06-13 16:15] LABS: AMPHETAMINE, URINE NEGATIVE (NEGATIVE); BARBITURATE, URINE NEGATIVE (NEGATIVE); BENZODIAZEPINE, URINE NEGATIVE (NEGATIVE); CANNABINOID, URINE NEGATIVE (NEGATIVE); COCCAINE, URINE NEGATIVE (NEGATIVE); OPIATE, URINE NEGATIVE (NEGATIVE); PHENCYCLIDINE SCREEN,URINE NEGATIVE (NEGATIVE)
[2023-06-13] MEDS: BLOOD SUGAR DIAGNOSTIC 1 EACH STRIP VI SCH ×2 (17:11→22:46)
[2023-06-13] MEDS: IV NS 0.9% 1,000 ML IV PRN (17:12)
[2023-06-13] MEDS: METFORMIN 500 MG TABLET PO SCH (17:59)
[2023-06-13 20:00] VITALS: BP 91/61
[2023-06-13] MEDS: OLANZAPINE 5 MG TABLET PO SCH (22:00)
[2023-06-13] MEDS: MIRTAZAPINE 15 MG TABLET PO SCH (22:00)
[2023-06-13] MEDS: LEVETIRACETAM (250 MG) 250 MG TABLET PO SCH (22:00)
[2023-06-14] MEDS: IV NS 0.9% 1,000 ML IV PRN (04:47)
[2023-06-14] MEDS: INSULIN REGULAR, HUMAN 100 UNIT/ML 3 ML VIAL SQ PRN (07:38)
[2023-06-14] MEDS: BLOOD SUGAR DIAGNOSTIC 1 EACH STRIP VI SCH ×4 (07:38→21:45)
[2023-06-14 08:00] VITALS: BP 92/73; TEMP 99.3; O2SAT 100
[2023-06-14] MEDS: MULTIVIT W/MINERALS 1 TAB TABLET PO SCH (08:08)
[2023-06-14] MEDS: LEVOTHYROXINE SODIUM 25 MCG TABLET PO SCH (08:08)
[2023-06-14] MEDS: METFORMIN 500 MG TABLET PO SCH ×2 (08:08→16:04)
[2023-06-14] MEDS: LEVETIRACETAM (250 MG) 250 MG TABLET PO SCH ×2 (08:08→21:08)
[2023-06-14] MEDS: DOCUSATE SODIUM 100 MG CAPSULE PO SCH (08:08)
[2023-06-14] MEDS: OLANZAPINE 5 MG TABLET PO SCH ×2 (08:08→21:09)
[2023-06-14] MEDS ORDERED: ASCORBIC ACID 500 MG TABLET PO SCH (09:00)
[2023-06-14] MEDS: CEFTRIAXONE 1 G in IV D5W 50 ML IV SCH (12:24)
[2023-06-14 16:00] VITALS: BP 101/71; TEMP 98.7; O2SAT 99
[2023-06-14] MEDS: GLUCERNA SHAKE 237 ML CAN PO SCH (17:23)
[2023-06-14 20:00] VITALS: BP 114/73; TEMP 97.5; O2SAT 98
[2023-06-14] MEDS: MIRTAZAPINE 15 MG TABLET PO SCH (21:09)
[2023-06-14] MEDS: *INSULIN REGULAR(HUMULIN R)HUM 100 UNIT/ML VIAL SQ PRN (21:46)
[2023-06-15] MEDS ORDERED: LORAZEPAM INJ 2 MG/ML VIAL IV PRN (01:30)
[2023-06-15] MEDS: INSULIN REGULAR, HUMAN 100 UNIT/ML 3 ML VIAL SQ PRN (06:08)
[2023-06-15] MEDS: BLOOD SUGAR DIAGNOSTIC 1 EACH STRIP VI SCH ×5 (06:08→22:10)
[2023-06-15] MEDS: LEVOTHYROXINE SODIUM 25 MCG TABLET PO SCH ×2 (07:30→08:53)
[2023-06-15 08:00] VITALS: BP 107/71; TEMP 97.9; O2SAT 100
[2023-06-15] MEDS: GLUCERNA SHAKE 237 ML CAN PO SCH ×3 (08:00→17:13)
[2023-06-15] MEDS: METFORMIN 500 MG TABLET PO SCH ×4 (08:53→17:12)
[2023-06-15] MEDS: OLANZAPINE 5 MG TABLET PO SCH ×3 (08:53→21:09)
[2023-06-15] MEDS: LEVETIRACETAM (250 MG) 250 MG TABLET PO SCH ×3 (08:53→21:09)
[2023-06-15] MEDS: DOCUSATE SODIUM 100 MG CAPSULE PO SCH ×2 (08:53→08:57)
[2023-06-15] MEDS: MULTIVIT W/MINERALS 1 TAB TABLET PO SCH ×2 (08:53→08:57)
[2023-06-15] MEDS: CEFTRIAXONE 1 G in IV D5W 50 ML IV SCH (11:47)
[2023-06-15 16:00] VITALS: BP 103/63; TEMP 98.1; O2SAT 99
[2023-06-15 20:00] VITALS: BP 109/66; TEMP 98.2; O2SAT 99
[2023-06-15] MEDS: MIRTAZAPINE 15 MG TABLET PO SCH (21:08)
[2023-06-15] MEDS: *INSULIN REGULAR(HUMULIN R)HUM 100 UNIT/ML VIAL SQ PRN ×2 (22:11→22:13)
[2023-06-16] MEDS: INSULIN REGULAR, HUMAN 100 UNIT/ML 3 ML VIAL SQ PRN ×2 (06:08→12:38)
[2023-06-16] MEDS: BLOOD SUGAR DIAGNOSTIC 1 EACH STRIP VI SCH ×2 (06:08→12:00)
[2023-06-16] MEDS: LEVOTHYROXINE SODIUM 25 MCG TABLET PO SCH (07:51)
[2023-06-16 08:00] VITALS: BP 88/50; TEMP 98.4
[2023-06-16] MEDS: METFORMIN 500 MG TABLET PO SCH (09:20)
[2023-06-16] MEDS: DOCUSATE SODIUM 100 MG CAPSULE PO SCH (09:20)
[2023-06-16] MEDS: MULTIVIT W/MINERALS 1 TAB TABLET PO SCH (09:20)
[2023-06-16] MEDS: LEVETIRACETAM (250 MG) 250 MG TABLET PO SCH (09:20)
[2023-06-16] MEDS: OLANZAPINE 5 MG TABLET PO SCH (09:20)
[2023-06-16] MEDS: GLUCERNA SHAKE 237 ML CAN PO SCH (09:21)
[2023-06-16] MEDS ORDERED: CEPH500C2 PO (09:46)
[2023-06-16] MEDS: CEFTRIAXONE 1 G in IV D5W 50 ML IV SCH (12:00)
[2023-06-16 12:44] VITALS: BP 97/72; TEMP 98.2; O2SAT 100
== END 2023-06-16 14:00 | DRG 689 ==
LOC: ER 14:03 → MED 16:07
PROVIDERS: ADMIT Internal Medicine; ATTEND Internal Medicine
DX: N39.0 Urinary tract infection, site not specified (principal); E43 Unspecified severe protein-calorie malnutrition; G93.41 Metabolic encephalopathy; E87.20 Acidosis, unspecified; Z68.1 Body mass index [BMI] 19.9 or less, adult; E86.0 Dehydration; E11.9 Type 2 diabetes mellitus without complications; E03.9 Hypothyroidism, unspecified; D64.9 Anemia, unspecified; E88.09 Other disorders of plasma-protein metabolism, not elsewhere classified; G40.909 Epilepsy, unspecified, not intractable, without status epilepticus; I10 Essential (primary) hypertension; I25.10 Atherosclerotic heart disease of native coronary artery without angina pectoris; J44.9 Chronic obstructive pulmonary disease, unspecified; Z74.01 Bed confinement status; Z87.891 Personal history of nicotine dependence; Z79.84 Long term (current) use of oral hypoglycemic drugs; F29 Unspecified psychosis not due to a substance or known physiological condition; B96.1 Klebsiella pneumoniae [K. pneumoniae] as the cause of diseases classified elsewhere; Z20.822 Contact with and (suspected) exposure to COVID-19; M24.59 Contracture, other specified joint; F03.90 Unspecified dementia, unspecified severity, without behavioral disturbance, psychotic disturbance, mood disturbance, and anxiety; R62.7 Adult failure to thrive; F31.9 Bipolar disorder, unspecified
CPT/HCPCS: 36415; 70450-TC; 71045-TC; 80048-TC; 80076-TC; 81001; 82140-TC; 82962-TC; 83605-TC; 84443-TC; 84484-TC; 85025-TC; 85730-TC; 87040-TC; 87081-TC; 87086-TC; 92526; 92611-TC; 97110-TC; 97530-TC; A4223; C9803; G0378; G0480; J0696; J1815; J3370; J7030; J7040; J7060